=== PATIENT | male | born 1955 | race Asian ===

== ENCOUNTER → 2017-06-17 | Day surgery (SDC) | payer BC ==
[2017-06-17] VITALS (8 sets, daily range): BP systolic 97–132; BP diastolic 69–79; PULSE 53–67; TEMP 36.5–36.8; O2SAT 95–99; Ht 175.3 cm; Wt 80.0 kg
[~2017-06-17] VITALS: Ht 175.3 cm; Wt 80.0 kg
[~2017-06-17] MED LIST: ACETAMINOPHEN 325 MG TAB PO PRN; ASCO500T3 PO; ASPI81TA28 PO; B COCAP3 PO; BACITRACIN OINT 0.9 GM PKT ONE; CEFAZOLIN 2000MG IV PUSH 15 ML IV SCH; FENTANYL CITRATE INJ 50 MCG/1 ML 2 ML VIAL ONE; KETOROLAC TROMETHAMINE 10 MG TAB PO PRN; LIDOCAINE HCL 1% 20 ML VIAL ONE; MAGN400T6 PO; METO50TA16 PO; MIDAZOLAM HCL 5 MG/ML 1 ML VIAL ONE; MULT-1030 PO; MYCO500T4 PO; TACR1CAP PO; VITATAB19 PO
--- NOTE | 2017-06-17 08:24 | History & Physical Bridge Note ---
H&P Re-Evaluation Bridge Note: I have examined the patient, reviewed the History & Physical and in the interval since the performance of the History & Physical I have noted the following changes of clinical significance: No changes noted. I reviewed the indications, procedure, risks and alternatives of device removal versus replacement with him, he understands that with device removal there is some risk of an arrhythmia but he feels that he would prefer to have the device out despite that risk. He has never used the device. We will therefore remove the device. I am going to leave the lead in place, will be capped. There will therefore be some bulk in the pocket, although will be less. He also would like the suture ears on the leads removed as they do raise his skin and I will do that also. Consent obtained for the procedure. I also reviewed the indications, procedure risks and alternatives of sedation with him and he understands and agrees to proceed. Consent obtained.
--- NOTE | 2017-06-17 08:25 | Pre Sedation Assessment ---
Pre Sedation Assessment General Date of Sedation: Jun 17, 2017. Vital Signs Past 12 Hours Date Time Temp Pulse Resp B/P (MAP) Pulse Ox O2 Delivery O2 Flow Rate FiO2 06/17/17 06:37 36.5 58 18 125/74 (91) 98 Room Air Review Cardiovascular: regular rate, rhythm Lungs: lungs clear Pre-Sedation Airway Assessment Smoking Status: Current Every Day Smoker Hx of Sleep Apnea: No Short Thick Neck: No Thyro-mental Distance: > 3 Finger Breadths Oral Cavity: Capped Teeth Mallampati Classification: Class II ASA Classification: Class II NPO Status Date of Last Intake of Fluids: Jun 16, 2017 Time of Last Intake of Fluids: 2099 Date of Last Intake of Solids: Jun 16, 2017 Time of Last Intake of Solids: 2099 Procedure Planning Contraindications for Sedation: None Current Medications Reviewed: Yes Notes The planned sedation has been discussed with the patient. Informed Consent was obtained. I have identified the patient, determined the appropriateness of sedation and have assessed the patient immediately prior to the procedure. All medicine(s) and interventions are by my order.
--- NOTE | 2017-06-17 10:10 | [facility] Operative Report ---
Operative Report Operative Date Jun 17, 2017. Pre-Operative Diagnosis ICD at end of service ICD pocket discomfort Post-Operative Diagnosis Same Procedure(s) Performed Dual-chamber ICD explantation ICD pocket revision Surgeon Dr. Tapia [employer] Officer Surgeon(s) none Estimated Blood Loss 20 cc Findings Lead measurements were good through the device preoperatively, the leads were capped and left in place. The pocket was revised to allow the leads to lay flush with the pectoralis fascia to reduce discomfort. Specimens Old ICD, return to [employer] Anesthesia Local with sedation Complication(s) None Disposition Same day surgery Description of Procedure After obtaining informed consent for the procedure, the patient was brought to the laboratory being NPO after midnight. After identification in the laboratory the patient was prepped and draped in the standard sterile manner for a left- sided device removal. The left prepectoral region was anesthetized with 1% lidocaine local anesthetic and once adequate anesthesia was obtained a 7 cm incision was made through the old implant scar and carried down to the ICD generator. The generator was dissected free of tissue and explanted. A bacitracin-soaked sponge(50,000 units in 50 cc normal saline solution) was placed in the pocket. The ICD was removed from the leads and the leads were capped with lead end caps held in place with 2-0 silk suture. Pacing and sensing characteristics had been evaluated in both the atrial and ventricular leads preoperatively as noted on the implant data sheet. The ICD pocket was revised by rerouting the leads which required careful dissection of the lead course, debulking the site with removal of scar tissue and allowing a smoother lead lie. The bacitracin-soaked sponge was removed from the pocket. The incision was closed with a running double subcutaneous closure of 3-0 V-Lock absorbable suture followed by a running subcuticular skin closure of 4-0 V-Lock absorbable suture. I attest to the content of the Intraoperative Record and any orders documented therein. Any exceptions are noted below.
--- NOTE | 2017-06-17 10:10 | Post Sedation Assessment ---
Post Sedation Assessment General Date of Sedation Jun 17, 2017. Vital Signs: Vital Signs Past 12 Hours Date Time Temp Pulse Resp B/P (MAP) Pulse Ox O2 Delivery O2 Flow Rate FiO2 06/17/17 06:37 36.5 58 18 125/74 (91) 98 Room Air Post Procedure Recovery Score Activity: (2) Moves 4 extremities * Respiration: (2) Deep breath/cough Circulation: (2) +/-20% PreAnes Value Consciousness: (2) Fully Awake Oxygen Saturation: (2) > 92% On Room Air Post Anesthesia Score: 10 Discharge Sedation Level of Care: Fast Track Phase II Post Sedation Plan On clinical assessment, the patient appears to have tolerated the sedation without complications. Patient is recovering as anticipated. Patient will continue to be monitored by nursing and may be discharged when sedation discharge criteria are met per below protocol. Upon Completions of procedure and additional 15 minutes continue every 5 minute vital signs and the P.A.R. score; then discharge to a Phase I or Fast Track to Phase II per the following guidelines: * Discharge Patient to appropriate Phase II area if PAR is 8 or greater or return to pre- procedure baseline. The post - procedure orders will be as directed. * If PAR score is less than 8 or not return to pre-procedure baseline then patient will follow Phase I monitoring till PAR is reached for Phase II. The Phase I may be done in procedure room or may call to secure a Phase I area. * If naloxone or flumazenil are used for reversal, hold in Phase I for an additional 60 -120 minutes before discharge to Phase II. Please call the Sedation Physician to re-evaluate and complete post-note for discharge to Phase II area. Do NOT discharge from procedure sedation or Phase 1 until post- sedation evaluation note is complete by procedure /sedation MD Sedation Discharge Instructions to be given to the patient at discharge to home.
--- NOTE | 2017-06-17 10:24 | Discharge Instructions ---
Discharge Instructions Date of Service Jun 17, 2017. Admission Reason for Admission: ICD at end of service Discharge Discharge Diagnosis / Problem: ICD removal, ICD pocket revision Discharge Goals Goal(s): Decrease discomfort, Increase independence Activity Recommendations Activity Limitations: resume your previous activity . Instructions / Follow-Up Instructions / Follow-Up ACTIVITY RECOMMENDATIONS: * Do not raise affected arm over head for 2 weeks. SPECIAL CARE INSTRUCTIONS: * If bleeding occurs, apply direct pressure to area for 5 minutes. * Call your doctor if you have severe pain, fever, drainage or bleeding at site. * Keep dressing on and dry. SKIN IRRITATION: * You may experience some redness and/or swelling in the area where radiation was administered. If any skin irritation occurs, please contact your family physician. FOLLOW UP VISIT: * Dr. Tapia Wednesday06/18/2017 10:00 AM Current Hospital Diet Patient's current hospital diet: AHA Diet (Heart Healthy) Discharge Diet Recommended Diet: AHA Diet (Heart Healthy), Renal Diet Pending Studies Studies pending at discharge: no Medical Emergencies . Who to Call and When: Medical Emergencies: If at any time you feel your situation is an emergency, please call 911 immediately. . Non-Emergent Contact Non-Emergency issues call your: Primary Care Provider . . "Provider Documentation" section prepared by Arnulfo Tapia. . VTE Core Measure Inpt VTE Proph given/why not?: Treatment not indicated
== END | disposition home or self-care (01) ==
LOC: C.ACU 06:09
PROVIDERS: ATTEND Internal Medicine Cardiovascular Disease
DX: I42.9 Cardiomyopathy, unspecified (principal); I25.10 Atherosclerotic heart disease of native coronary artery without angina pectoris; I12.0 Hypertensive chronic kidney disease with stage 5 chronic kidney disease or end stage renal disease; N18.6 End stage renal disease; F17.200 Nicotine dependence, unspecified, uncomplicated; Z94.0 Kidney transplant status; Z79.899 Other long term (current) drug therapy; Z86.79 Personal history of other diseases of the circulatory system; Z83.3 Family history of diabetes mellitus; Z80.1 Family history of malignant neoplasm of trachea, bronchus and lung; Z80.42 Family history of malignant neoplasm of prostate; Z79.82 Long term (current) use of aspirin

== ENCOUNTER 2022-06-15 21:00 | Observation (INO) ==
[2022-06-15 22:27] LABS: Albumin Globulin Ratio 1.3 (0.9-2); Albumin Level 3.8 gm/dl (3.4-5.0); BUN Creatinine Ratio 16.1 (10-20); Bilirubin,Total 1.5 mg/dl (0.2-1.0); Calcium 9.9 mg/dl (8.5-10.1); Creatinine Clr Calc Pharmacy 62.8 ml/min; Est GFR (African American) 78.9 ml/min; Est GFR (Non-African American) 68.1 ml/min; Globulin 2.9 gm/dl (2.5-4.0); Magnesium 1.8 mg/dl (1.7-2.4); Potassium 4.2 mmol/L (3.5-5.1); Total Protein 6.7 gm/dl (6.0-8.3)
[2022-06-15 22:42] LABS: INR 1.2 (0.9-1.1); Partial Thromboplastin Ratio 0.9; Partial Thromboplastin Time 24.1 Seconds (21.0-31.0); Prothrombin Time 12.8 Seconds (9.0-12.0)
[2022-06-15 22:43] LABS: Hematocrit (blood only) 18.8 % (42.0-52.0); Hemoglobin 6.5 g/dl (14.0-18.0); Mean Corpuscular Hemoglobin 35.5 pg (25.0-34.0); Mean Corpuscular Hgb Conc 34.6 g/dL (32.0-36.0); Mean Corpuscular Volume 102.7 fL (80.0-100.0); Mean Platelet Volume 10.6 fL (9.4-12.4); Nucleated RBC # (auto) 0.02 K/uL (0-0.12); Platelet Count 97 K/uL (130-400); RDW Coefficient of Variation 17.3 % (11.5-14.5); RDW Standard Deviation 61.6 fL (36.4-46.3); Red Blood Count 1.83 M/uL (4.70-6.10); White Blood Count 1.96 K/ul (4.8-10.8)
[2022-06-15] MEDS ORDERED: SODIUM CHLORIDE 0.9% 250 ML IV PRN (23:01)
[2022-06-15 23:08] LABS: ALC (manual) 0.43 K/uL (1.2-3.4); ANC (manual) 1.22 K/uL (1.4-6.5); Basophils # (manual) 0.06 K/uL (0-0.2); Basophils % (manual) 3 %; Lymphocytes # (manual) 0.43 K/uL (1.2-3.4); Lymphocytes % (manual) 22 %; Metamyelocytes # (manual) 0.02 K/uL (0-0); Metamyelocytes % (manual) 1 %; Monocytes # (manual) 0.14 K/uL (0.11-0.59); Monocytes % (manual) 7 %; Myelocytes # (manual) 0.08 K/uL (0-0); Myelocytes % (manual) 4 %; Neutrophils # (manual) 1.22 K/uL (1.40-6.50); Neutrophils % (manual) 62 %; Promyelocytes # (manual) 0.02 K/uL (0-0); Promyelocytes % (manual) 1 %
--- NOTE | 2022-06-16 00:52 | History & Physical Report ---
Date of Service June 16, 2022 Assessment & Plan (1) Pancytopenia: (2) Symptomatic anemia: (3) Neutropenia: (4) Cardiomyopathy: (5) Hypertension: (6) Kidney replaced by transplant: (7) Long-term use of immunosuppressant medication: (8) Paroxysmal atrial fibrillation: (9) Thrombocytopenia: (10) Mitral regurgitation: (11) Petechiae: Plan Symptomatic anemia- Hemoglobin 6.5 on admission Patient received 2 units PRBCs as written from the ED Repeat laboratories in a.m. Patient does not have acute blood loss. Decreased hemoglobin is likely a function of immunosuppressant medication side effects, and or other bone marrow dysfunction Consult hematology/oncology, who aware the patient Status post kidney transplant- Patient has been on mycophenolate and tacrolimus He does not have a local jack prizer We will defer to hematology oncology for any reduction of medications that may be needed Neutropenia- Placed on neutropenic precautions come on Abnormal WBC differential noted with increased numbers of metamyelocytes, myelocytes, promyelocytes and blast cells. It has been determined by [facility] that follow laboratory serially the patient does not need to be transferred Peripheral smear pending Thrombocytopenia- Hold aspirin for now due to potential aggravation Acute kidney injury- Creatinine 1.22 upon admission, with range 0.80-1.00 Will likely improve with transfusion Hypertension- Hold metoprolol tartrate due to relatively low blood pressure History of Present Illness Chief Complaint: The patient is referred to the emergency department due to abnormal blood work, and subjectively has become progressively more short of breath over the past few weeks Primary Care Provider: Mor Palacio MD The patient is a 66-year-old male with a past medical history including pancytopenia, mitral regurgitation, CAD, cardiomyopathy, hypertension, kidney transplant, long-term use of immunosuppressant medication, paroxysmal atrial fibrillation, thrombocytopenia and anemia. After discussion by the ED with [facility] specialties physicians, there was an attempt made for the patient transferred to [facility], however, [facility] felt the patient could be managed at this facility, and therefore the patient will be admitted for further evaluation and treatment. The patient himself was concerned that his immunosuppressive medications that he uses for his kidney transplant, may possibly be causing his anemia, as he has been told that in the past. The patient's primary symptom of concern for him is that of progressively worsening shortness of breath and dyspnea on exertion. Allergies Allergy/AdvReac Type Severity Reaction Status Date / Time No Known Allergies Allergy Unverified 06/16/22 00:23 Home Medications Medication Instructions Recorded Confirmed Type aspirin 81 mg tablet 81 mg PO DAILY 03/05/19 06/16/22 History magnesium oxide 400 mg (241.3 mg 400 mg PO HS 03/05/19 06/16/22 History magnesium) tablet multivitamin 1 tab PO DAILY 03/05/19 06/16/22 History mycophenolate mofetil 250 mg 500 mg PO BID #360 caps 03/05/19 06/16/22 History capsule tacrolimus 1 mg capsule, 1 mg PO BID 03/05/19 06/16/22 History immediate-release vitamin B complex (B Complex 1 1 tab PO DAILY 03/05/19 06/16/22 History tablet) cholecalciferol (vitamin D3) 25 25 mcg PO QAM 07/10/20 06/16/22 History mcg (1,000 unit) capsule metoprolol tartrate 50 mg tablet 50 mg PO BID #180 tabs 01/20/22 06/16/22 Rx diphenhydramine HCl 50 mg capsule 50 mg PO HS 06/11/22 06/16/22 History (Sleep Aid (diphenhydramine)) Vitamin B Stress Complex 1 tab PO HS 06/16/22 06/16/22 History Past Med/Surg History Medical History (Updated 06/16/22 @ 04:29 by Luther Carias MD) Arteriosclerosis of coronary artery Cardiomyopathy Hypertension Long-term use of immunosuppressant medication Paroxysmal atrial fibrillation Thrombocytopenia Surgical History (Updated 06/16/22 @ 01:24 by Mode Collins DO) Kidney replaced by transplant S/P adenoidectomy S/P arteriovenous (AV) fistula creation S/P cardiac pacemaker procedure S/P cholecystectomy S/P kidney transplant S/P knee surgery S/P tonsillectomy Family History Mother Diabetes Father Prostate cancer Lung cancer Denies family history of Ovarian cancer Myocardial infarction Breast cancer Colorectal cancer Stroke Social History Smoking Status: Current some day smoker Tobacco Type: Pipe Age Started Using Tobacco: 9; packs per day: 2; Cigarettes Per Day: 0.5 a day; Second Hand Exposure: No; Hx Alcohol Use: Yes Alcohol Intake Frequency: 2-3 x/Week Hx Substance Use: No Preferred Language: Singaporean Communication Ability: Effective Visual Impairment: No Limitations Hearing Ability: Normal marital status: Single current occupational status: retired Feels Safe at Home: Yes Childhood Exposure to Second-Hand Smoke: No Dental Care, Regularly: Yes Physical Activity Frequency: 3-4 Times per Week Seatbelt Use: always Sunscreen Use: Yes Review of Systems Review of Systems: The patient denies chest pain, palpitations, cough, lower extremity swelling, sore throat, fevers, chills, sweats, nausea, vomiting, diarrhea , constipation, abdominal pain, pelvic pain, blood in urine or stool, dysuria, urinary frequency or urgency, lightheadedness, dizziness, headache, memory loss, loss of consciousness, imbalance, focal weakness, numbness or tingling in arms or legs, generalized arthralgias or myalgias, back or neck pain, or night sweats. The review of systems is otherwise negative other than for that already noted above, and at least 10 systems have been reviewed. Physical Exam Physical Exam: The patient is awake, alert and oriented 3, well developed and well nourished, normocephalic and atraumatic, lying in bed and in no acute distress. HEENT--PERRL, EOMI, mucous membranes and oropharynx mildly dry. Neck--supple. No JVD. No bruits. Thyroid normal, trachea midline, no adenopathy. Heart--normal S1 and S2. No murmurs, rubs or gallops. Lungs--clear bilaterally, no respiratory distress, no accessory muscle use. Abdomen--normal bowel sounds and soft. Nontender. Nondistended, no hernias or masses, no organomegaly. Extremities--no cyanosis or clubbing. No edema. Dermatologic--scattered petechial rash Neurologic--cranial nerves II through XII grossly intact. Rheumatologic--normal range of motion. Psychiatric--normal affect. Results & Data Results & Data ([facility]) Vital Signs (Past 12 Hours) Vital Signs Temp Pulse Pulse Resp BP BP Pulse Ox 06/16/22 00:22 37.2 C 79 20 123/70 99 06/16/22 00:07 82 18 123/73 98 06/15/22 23:50 37.1 C 82 18 111/63 97 06/15/22 22:16 97 06/15/22 22:16 97 06/15/22 22:16 92 H 20 133/72 97 06/15/22 22:09 94 H 06/15/22 21:17 37.3 C 107 H 18 120/65 98 O2 Del Method 06/16/22 00:22 06/16/22 00:07 06/15/22 23:50 06/15/22 22:16 Room Air 06/15/22 22:16 Room Air 06/15/22 22:16 Room Air 06/15/22 22:09 06/15/22 21:17 Room Air Laboratory Results Laboratory Results WBC 1.96 K/ul (4.8-10.8) L 06/15/22 21:40 RBC 1.83 M/uL (4.70-6.10) L 06/15/22 21:40 Hgb 6.5 g/dl (14.0-18.0) L* 06/15/22 21:40 Hct 18.8 % (42.0-52.0) L* 06/15/22 21:40 MCV 102.7 fL (80.0-100.0) H 06/15/22 21:40 MCH 35.5 pg (25.0-34.0) H 06/15/22 21:40 MCHC 34.6 g/dL (32.0-36.0) 06/15/22 21:40 RDW Std Deviation 61.6 fL (36.4-46.3) H 06/15/22 21:40 RDW Coeff of Michelle 17.3 % (11.5-14.5) H 06/15/22 21:40 Plt Count 97 K/uL (130-400) L 06/15/22 21:40 MPV 10.6 fL (9.4-12.4) 06/15/22 21:40 Absolute Nucleated RBC 0.02 K/uL (0-0.12) 06/15/22 21:40 Nucleated RBC % (auto) 1.0 % 06/15/22 21:40 Neutrophils % (Manual) 62 % 06/15/22 21:40 Lymphocytes % (Manual) 22 % 06/15/22 21:40 Monocytes % (Manual) 7 % 06/15/22 21:40 Basophils % (Manual) 3 % 06/15/22 21:40 Metamyelocytes % (Man) 1 % 06/15/22 21:40 Myelocytes % (Man) 4 % 06/15/22 21:40 Promyelocytes % (Man) 1 % 06/15/22 21:40 Neutrophils # (Manual) 1.22 K/uL (1.40-6.50) L 06/15/22 21:40 Total Absolute Neuts 1.22 K/uL (1.4-6.5) L 06/15/22 21:40 Lymphocytes # (Manual) 0.43 K/uL (1.2-3.4) L 06/15/22 21:40 Total Abs Lymphocytes 0.43 K/uL (1.2-3.4) L 06/15/22 21:40 Monocytes # (Manual) 0.14 K/uL (0.11-0.59) 06/15/22 21:40 Basophils # (Manual) 0.06 K/uL (0-0.2) 06/15/22 21:40 Metamyelocytes # (Man) 0.02 K/uL (0-0) H 06/15/22 21:40 Myelocytes # (Manual) 0.08 K/uL (0-0) H 06/15/22 21:40 Promyelocytes # (Man) 0.02 K/uL (0-0) H 06/15/22 21:40 PT 12.8 Seconds (9.0-12.0) H 06/15/22 21:40 INR 1.2 (0.9-1.1) H 06/15/22 21:40 APTT 24.1 Seconds (21.0-31.0) 06/15/22 21:40 PTT Ratio 0.9 06/15/22 21:40 Sodium 132 mmol/L (136-145) L 06/15/22 21:40 Potassium 4.2 mmol/L (3.5-5.1) 06/15/22 21:40 Chloride 100 mmol/L (98-107) 06/15/22 21:40 Carbon Dioxide 20 mmol/L (21-32) L 06/15/22 21:40 Anion Gap 12 (3-11) H 06/15/22 21:40 BUN 18 mg/dl (6-23) 06/15/22 21:40 Creatinine 1.12 mg/dl (0.6-1.4) 06/15/22 21:40 Est Cr Clr Drug Dosing 62.8 ml/min 06/15/22 21:40 Est GFR ( Amer) 78.9 ml/min 06/15/22 21:40 Est GFR (Non-Af Amer) 68.1 ml/min 06/15/22 21:40 BUN/Creatinine Ratio 16.1 (10-20) 06/15/22 21:40 Glucose 96 mg/dl (70-99(Fasting)) 06/15/22 21:40 Calcium 9.9 mg/dl (8.5-10.1) 06/15/22 21:40 Magnesium 1.8 mg/dl (1.7-2.4) 06/15/22 21:40 Total Bilirubin 1.5 mg/dl (0.2-1.0) H 06/15/22 21:40 AST 33 U/L (13-39) 06/15/22 21:40 ALT 11 U/L (7-52) 06/15/22 21:40 Alkaline Phosphatase 77 U/L (34-104) 06/15/22 21:40 Troponin I High Sens 10.9 pg/ml (0-20) 06/16/22 02:50 Total Protein 6.7 gm/dl (6.0-8.3) 06/15/22 21:40 Albumin 3.8 gm/dl (3.4-5.0) 06/15/22 21:40 Globulin 2.9 gm/dl (2.5-4.0) 06/15/22 21:40 Albumin/Globulin Ratio 1.3 (0.9-2) 06/15/22 21:40 SARS-CoV-2, RNA, NAAT NEGATIVE (NEGATIVE) 06/15/22 23:05 Blood Type B Positive 06/15/22 21:48 Antibody Screen NEGATIVE 06/15/22 21:48 Crossmatch See Detail 06/15/22 21:48 Code Status & VTE Plan Code Status Full code VTE Prophylaxis Plan VTE Prophylaxis will be ordered: Yes PG Care Time/CCT Total # of Minutes Spent Total Time Spent with Patient: Total time spent is greater than 50% in coordination of care (as documented) at patient's floor/unit and/or counseling patient: Coding Level of Care Code 71450 INT INP/OBS CARE MIN Diagnoses Pancytopenia D61.818 Symptomatic anemia D64.9 Neutropenia D70.9 Cardiomyopathy I42.9 Hypertension I10 Kidney replaced by transplant Z94.0 Long-term use of immunosuppressant medication Z79.899 Paroxysmal atrial fibrillation I48.0 Thrombocytopenia D69.6 Mitral regurgitation I34.0 Petechiae R23.3
--- NOTE | 2022-06-16 01:24 | Emergency Department Note ---
Impression & Plan Pancytopenia, Long-term use of immunosuppressant medication, Kidney replaced by transplant, Symptomatic anemia, Abnormal ECG, Petechiae ED Provider Note NAME: MARGARITO LACEY AGE: 66 SEX: M : 1955 ARRIVES VIA: Walk-In INFORMANT: Patient ED PROVIDER(S): Mode Collins DO CHIEF COMPLAINT: Abnormal blood work HPI: Patient is a 66-year-old male who presents to the ER for abnormal blood work. Patient has extensive past medical history of mitral regurg, CAD, renal transplant who presents to the ER for low hemoglobin. Patient notes that he is becoming very short of breath with any kind of movement. Denies any headache or change in vision. No chest pain. No belly pain nausea vomiting or diarrhea. No dark stools. He notes he had a rash throughout his whole body which has been present for the past 2 weeks. He is followed up with dermatology and they have done biopsies. His PCP called him tonight and referred him urgently into the ER for admission and blood work. Renal transplant was 13 years ago. No fevers. PAST MEDICAL HISTORY:See Below PAST SURGICAL HISTORY:See Below FAMILY HISTORY:See Below SOCIAL HISTORY:See Below HOME MEDICATIONS:See Below ALLERGIES:See Below VITALS:See Below PHYSICAL EXAMINATION: GENERAL: Sitting up in bed, alert, well appearing, well nourished, no distress, non-toxic EYE EXAM: normal conjunctiva. PERRL and EOM's intact. OROPHARYNX: no exudate, no erythema, lips, buccal mucosa, and tongue normal and mucous membranes are moist NECK: supple, no nuchal rigidity, no adenopathy, non-tender LUNGS: Clear to auscultation. Normal chest wall mechanics HEART: no murmurs, S1 normal and S2 normal ABDOMEN: abdomen soft, non-tender, normo-active bowel sounds, no masses, no rebound or guarding. UPPER EXTREMITIES: upper extremities are grossly normal. SKIN: Rash with petechia and vesicles present throughout the chest back and head LOWER EXTREMITIES: No pitting edema. NEURO EXAM: Normal sensorium, cranial nerves II-XII intact, normal speech, no weakness of arms, no weakness of legs. No drift. Finger to nose intact. Gross sensation intact. MEDICAL DECISION MAKING: Patient is a 66-year-old male who presents to the ER referred by PCP. IV was established blood work is obtained and show. External records were reviewed. Labs show pancytopenia with a white count of 1.9, hemoglobin of 6.5 and platelets of 90. BMP with mild hyponatremia 132. T. bili 1.5. LFTs were unremarkable. COVID was negative. Patient was typed and crossed and screened. Given 2 units of PRBCs. Discussed with hematology and oncology and they recommended transfer. Discussed with [facility] oncology and they recommended admission here and having him evaluated by her blood bank calendar control clerk oncologist as this can be dealt with here for the time being unless something changes drastically. Blasts were 0.03. This was discussed at length with Dr. Jo as well as [facility] oncology Dr. Albarado. Patient was updated bedside. Discussed with Dr. Luther Carias for further evaluation admission. Triage Nursing notes reviewed. Limited review of prior medical records performed Vital Signs: reviewed and remarkable for no significant abnormalities Differential diagnosis: Infection, dehydration, metabolic abnormality, hypo/hyperglycemia, electrolyte disturbance, anemia, hypoxia, cardiac sources, intracerebral event, toxicologic, neurologic, as well as other pathologies. ER treatment provided: See below Diagnostics interpreted by me include EKG and cardiac monitoring as listed below: -Cardiac Monitoring: An order was placed for continuous cardiac monitoring. The monitor shows a rate of 80 with sinus rhythm. -ECG: Sinus tachycardia rate of 106 Normal axis T wave inversion and ST depressions V3 through V6 QTc 470 -Laboratory studies:Interpreted by me as stated above in MDM and shown below. Imaging studies: Xrays: As interpreted by me: Portable AP upright 1 view of the chest per my read shows no focal infiltrate CTs show: none Consultation(s): As described in [facility] Procedures:none Critical Care: I have personally spent 35 minutes of critical care time in the direct management of this patient. This includes bedside care, interpretation of diagnostic studies, and testing, discussion with consultants, patient, and family members, and other required patient management activities. This 35 minutes is in excess of all separately billable procedures. Past Med/Surg History Medical History (Updated 06/16/22 @ 01:24 by Mode Collins DO) Arteriosclerosis of coronary artery Cardiomyopathy Hypertension Long-term use of immunosuppressant medication Paroxysmal atrial fibrillation Thrombocytopenia Surgical History (Updated 06/16/22 @ 01:24 by Mode Collins DO) Kidney replaced by transplant S/P adenoidectomy S/P arteriovenous (AV) fistula creation S/P cardiac pacemaker procedure S/P cholecystectomy S/P kidney transplant S/P knee surgery S/P tonsillectomy Family History Mother Diabetes Father Prostate cancer Lung cancer Denies family history of Ovarian cancer Myocardial infarction Breast cancer Colorectal cancer Stroke Social History Smoking Status: Current some day smoker Tobacco Type: Pipe Age Started Using Tobacco: 9; packs per day: 2; Cigarettes Per Day: 0.5 a day; Second Hand Exposure: No; Hx Alcohol Use: Yes Alcohol Intake Frequency: 2-3 x/Week Hx Substance Use: No Preferred Language: Romansh Communication Ability: Effective Visual Impairment: No Limitations Hearing Ability: Normal marital status: Single current occupational status: retired Feels Safe at Home: Yes Childhood Exposure to Second-Hand Smoke: No Dental Care, Regularly: Yes Physical Activity Frequency: 3-4 Times per Week Seatbelt Use: always Sunscreen Use: Yes Allergies Allergies Allergy/AdvReac Type Severity Reaction Status Date / Time No Known Allergies Allergy Unverified 06/16/22 00:23 Home Meds Home Medications Medication Instructions Recorded Confirmed aspirin 81 mg tablet 81 mg PO DAILY 03/05/19 06/16/22 magnesium oxide 400 mg (241.3 mg 400 mg PO HS 03/05/19 06/16/22 magnesium) tablet multivitamin 1 tab PO DAILY 03/05/19 06/16/22 mycophenolate mofetil 250 mg 500 mg PO BID #360 caps 03/05/19 06/16/22 capsule tacrolimus 1 mg capsule, 1 mg PO BID 03/05/19 06/16/22 immediate-release vitamin B complex (B Complex 1 1 tab PO DAILY 03/05/19 06/16/22 tablet) cholecalciferol (vitamin D3) 25 25 mcg PO QAM 07/10/20 06/16/22 mcg (1,000 unit) capsule diphenhydramine HCl 50 mg capsule 50 mg PO HS 06/11/22 06/16/22 (Sleep Aid (diphenhydramine)) Vitamin B Stress Complex 1 tab PO HS 06/16/22 06/16/22 Previous Rx's Medication Instructions Recorded metoprolol tartrate 50 mg tablet 50 mg PO BID #180 tabs 01/20/22 Results & Data (ED) Vital Signs Vital Signs - 24 hr 06/15/22 21:17 06/15/22 22:09 06/15/22 22:16 Temperature 37.3 C Temperature Source Temporal Artery Scan Pulse Rate 107 H 94 H Pulse Rate [Apical] 92 H Respiratory Rate 18 20 Respiratory Effort / Characteristics Non-Labored Non-Labored Respiratory Depth Normal Normal Respiratory Pattern Regular Blood Pressure 120/65 Blood Pressure [Right Arm] 133/72 Blood Pressure Mean 83 Blood Pressure Mean [Right Arm] 92 Pulse Oximetry 98 97 Oxygen Delivery Method Room Air Room Air Sepsis Recent Fever Within 48 Hours No Sepsis New/Unexplained Change in Mental Status No Sepsis Action Taken by Nursing No Action Required 06/15/22 22:16 06/15/22 22:16 06/15/22 23:50 Temperature 37.1 C Temperature Source Oral Pulse Rate 82 Pulse Rate [Apical] Respiratory Rate 18 Respiratory Effort / Characteristics Respiratory Depth Respiratory Pattern Blood Pressure 111/63 Blood Pressure [Right Arm] Blood Pressure Mean 79 Blood Pressure Mean [Right Arm] Pulse Oximetry 97 97 97 Oxygen Delivery Method Room Air Room Air Sepsis Recent Fever Within 48 Hours Sepsis New/Unexplained Change in Mental Status Sepsis Action Taken by Nursing 06/16/22 00:07 06/16/22 00:22 06/16/22 00:52 Temperature 37.2 C Temperature Source Oral Pulse Rate 82 79 74 Pulse Rate [Apical] Respiratory Rate 18 20 18 Respiratory Effort / Characteristics Respiratory Depth Respiratory Pattern Blood Pressure 123/73 123/70 103/60 Blood Pressure [Right Arm] Blood Pressure Mean 89 87 74 Blood Pressure Mean [Right Arm] Pulse Oximetry 98 99 98 Oxygen Delivery Method Sepsis Recent Fever Within 48 Hours Sepsis New/Unexplained Change in Mental Status Sepsis Action Taken by Nursing Laboratory Data 06/15/22 21:40 06/15/22 21:40 Lab Results 06/15/22 06/15/22 06/15/22 Range/Units 21:40 21:40 21:40 WBC 1.96 L (4.8-10.8) K/ul RBC 1.83 L (4.70-6.10) M/uL Hgb 6.5 L* (14.0-18.0) g/dl Hct 18.8 L* (42.0-52.0) % MCV 102.7 H (80.0-100.0) fL MCH 35.5 H (25.0-34.0) pg MCHC 34.6 (32.0-36.0) g/dL RDW Std Deviation 61.6 H (36.4-46.3) fL RDW Coeff of Michelle 17.3 H (11.5-14.5) % Plt Count 97 L (130-400) K/uL MPV 10.6 (9.4-12.4) fL Absolute Nucleated RBC 0.02 (0-0.12) K/uL Nucleated RBC % (auto) 1.0 % Neutrophils % (Manual) 62 % Lymphocytes % (Manual) 22 % Monocytes % (Manual) 7 % Basophils % (Manual) 3 % Metamyelocytes % (Man) 1 % Myelocytes % (Man) 4 % Promyelocytes % (Man) 1 % Neutrophils # (Manual) 1.22 L (1.40-6.50) K/uL Total Absolute Neuts 1.22 L (1.4-6.5) K/uL Lymphocytes # (Manual) 0.43 L (1.2-3.4) K/uL Total Abs Lymphocytes 0.43 L (1.2-3.4) K/uL Monocytes # (Manual) 0.14 (0.11-0.59) K/uL Basophils # (Manual) 0.06 (0-0.2) K/uL Metamyelocytes # (Man) 0.02 H (0-0) K/uL Myelocytes # (Manual) 0.08 H (0-0) K/uL Promyelocytes # (Man) 0.02 H (0-0) K/uL PT 12.8 H (9.0-12.0) Seconds INR 1.2 H (0.9-1.1) APTT 24.1 (21.0-31.0) Seconds PTT Ratio 0.9 Sodium 132 L (136-145) mmol/L Potassium 4.2 (3.5-5.1) mmol/L Chloride 100 (98-107) mmol/L Carbon Dioxide 20 L (21-32) mmol/L Anion Gap 12 H (3-11) BUN 18 (6-23) mg/dl Creatinine 1.12 (0.6-1.4) mg/dl Est Cr Clr Drug Dosing 62.8 ml/min Est GFR ( Amer) 78.9 ml/min Est GFR (Non-Af Amer) 68.1 ml/min BUN/Creatinine Ratio 16.1 (10-20) Glucose 96 (70-99(Fasting)) mg/dl Calcium 9.9 (8.5-10.1) mg/dl Magnesium 1.8 (1.7-2.4) mg/dl Total Bilirubin 1.5 H (0.2-1.0) mg/dl AST 33 (13-39) U/L ALT 11 (7-52) U/L Alkaline Phosphatase 77 (34-104) U/L Total Protein 6.7 (6.0-8.3) gm/dl Albumin 3.8 (3.4-5.0) gm/dl Globulin 2.9 (2.5-4.0) gm/dl Albumin/Globulin Ratio 1.3 (0.9-2) SARS-CoV-2, RNA, NAAT (NEGATIVE) Blood Type Antibody Screen Crossmatch 06/15/22 06/15/22 Range/Units 21:48 23:05 WBC (4.8-10.8) K/ul RBC (4.70-6.10) M/uL Hgb (14.0-18.0) g/dl Hct (42.0-52.0) % MCV (80.0-100.0) fL MCH (25.0-34.0) pg MCHC (32.0-36.0) g/dL RDW Std Deviation (36.4-46.3) fL RDW Coeff of Michelle (11.5-14.5) % Plt Count (130-400) K/uL MPV (9.4-12.4) fL Absolute Nucleated RBC (0-0.12) K/uL Nucleated RBC % (auto) % Neutrophils % (Manual) % Lymphocytes % (Manual) % Monocytes % (Manual) % Basophils % (Manual) % Metamyelocytes % (Man) % Myelocytes % (Man) % Promyelocytes % (Man) % Neutrophils # (Manual) (1.40-6.50) K/uL Total Absolute Neuts (1.4-6.5) K/uL Lymphocytes # (Manual) (1.2-3.4) K/uL Total Abs Lymphocytes (1.2-3.4) K/uL Monocytes # (Manual) (0.11-0.59) K/uL Basophils # (Manual) (0-0.2) K/uL Metamyelocytes # (Man) (0-0) K/uL Myelocytes # (Manual) (0-0) K/uL Promyelocytes # (Man) (0-0) K/uL PT (9.0-12.0) Seconds INR (0.9-1.1) APTT (21.0-31.0) Seconds PTT Ratio Sodium (136-145) mmol/L Potassium (3.5-5.1) mmol/L Chloride (98-107) mmol/L Carbon Dioxide (21-32) mmol/L Anion Gap (3-11) BUN (6-23) mg/dl Creatinine (0.6-1.4) mg/dl Est Cr Clr Drug Dosing ml/min Est GFR ( Amer) ml/min Est GFR (Non-Af Amer) ml/min BUN/Creatinine Ratio (10-20) Glucose (70-99(Fasting)) mg/dl Calcium (8.5-10.1) mg/dl Magnesium (1.7-2.4) mg/dl Total Bilirubin (0.2-1.0) mg/dl AST (13-39) U/L ALT (7-52) U/L Alkaline Phosphatase (34-104) U/L Total Protein (6.0-8.3) gm/dl Albumin (3.4-5.0) gm/dl Globulin (2.5-4.0) gm/dl Albumin/Globulin Ratio (0.9-2) SARS-CoV-2, RNA, NAAT NEGATIVE (NEGATIVE) Blood Type B Positive Antibody Screen NEGATIVE Crossmatch See Detail Discharge Plan Visit Data Chief Complaint: Referred by Doctor Stated Complaint: REF BY DOC, BLOOD INFUSION ED Provider: Mode Collins Discharge Problem: Pancytopenia, Long-term use of immunosuppressant medication, Kidney replaced by transplant, Symptomatic anemia, Abnormal ECG, Petechiae Forms Stand Alone Forms: My [facility] Prescriptions Prescriptions: No Action tacrolimus 1 mg capsule 1 mg PO BID aspirin 81 mg tablet 81 mg PO DAILY mycophenolate mofetil 250 mg capsule 500 mg PO BID Qty: 360 magnesium oxide 400 mg (241.3 mg magnesium) tablet 400 mg PO HS multivitamin tablet 1 tab PO DAILY vitamin B complex [B Complex 1] tablet 1 tab PO DAILY cholecalciferol (vitamin D3) 25 mcg (1,000 unit) capsule 25 mcg PO QAM metoprolol tartrate 50 mg tablet 50 mg PO BID Qty: 180 3RF diphenhydramine HCl [Sleep Aid (diphenhydramine)] 50 mg capsule 50 mg PO HS Vitamin B Stress Complex 1 tab PO HS Referrals Referrals: Pro,Mor Oliveira MD [Primary Care Provider] -
[2022-06-16] MEDS ORDERED: ONDANSETRON INJ 2 MG/ML 2 ML VIAL IV PRN (01:54)
[2022-06-16] MEDS ORDERED: ACETAMINOPHEN 325 MG TAB PO PRN (01:54)
[2022-06-16] MEDS: TACROLIMUS 1 MG CAP PO SCH ×3 (02:00→21:08)
[2022-06-16] MEDS: MYCOPHENOLATE MOFETIL 250 MG CAP PO SCH ×3 (02:00→21:08)
[2022-06-16 06:44] LABS: Appearance Urine Clear (Clear); Bilirubin Urine Negative (Negative); Blood Urine Negative (Negative); Color Urine Yellow; Glucose Urine UA Negative (Negative); Ketones Urine Negative (Negative); Leukocyte Esterase Urine Negative (Negative); Nitrite Urine Negative (Negative); Protein Urine Negative (Negative); Specific Gravity Urine 1.005 (1.000-1.030); Urobilinogen Urine Negative (Negative); pH Urine 6.5 (4.5-7.5)
--- NOTE | 2022-06-16 08:30 | Oncology Consultation ---
Date of Consultation June 16, 2022 Assessment & Plan (1) Pancytopenia: (2) Kidney replaced by transplant: (3) Long-term use of immunosuppressant medication: Plan Pleasant gentleman with history of renal transplant for which he has remained on chronic immunosuppression with tacrolimus/CellCept. Presented with worsening pancytopenia. Multiple potential etiologies for pancytopenia including viral infection most especially in the setting of molluscum contagiosum like rash. Dr trinidad-induced thrombotic microangiopathy is another possibility especially given elevated LDH and mild unconjugated hyperbilirubinemia. He is also on immunosuppression medications with both tacrolimus and CellCept potentially causing bone marrow suppression although this is atypical given long-term use of these medications. He could also have underlying hematologic malignancy such as MDS/leukemia or lymphoma. Will discuss with renal transplant team at [facility] and if they feel this is less likely due to drug-induced TMA or marrow suppression from tacrolimus/CellCept, will plan for bone marrow biopsy later this week to rule out underlying malignancy. In the meantime, agree with PRBC transfusion with goal of hemoglobin greater than 7.5. Also recommend infectious work-up to rule out underlying infection. Thank you for this consult. Hematology will follow patient upon discharge from hospital. Please feel free to call if you have any other questions History of Present Illness Reason for Consultation: Pancytopenia Attending Physician: Primitivo Hicks History of Present Illness Pleasant 66-year-old gentleman with medical history of kidney transplant on 09/04/2009 for which she has required chronic immunosuppression with CellCept and tacrolimus. Patient was admitted to [facility] for worsening pancytopenia. He had presented to his PCP about a week ago with complaints of 2-week history of worsening generalized rash. At that time, CBC was obtained which revealed new onset pancytopenia with white cell count of 2.09, hemoglobin of 7.8 (decreased from 16.1 in March,), thrombocytopenia with platelet count of of 1 29,000. At that time, and had discussed case with his PCP and recommended work-up including iron studies, vitamin B12 level, folate, LDH, haptoglobin, Prakash test and reticulocyte count. Patient was also referred to dermatology for evaluation of skin lesions. He was scheduled to be evaluated in hematology clinic later this week. However, labs obtained by PCP yesterday revealed worsening anemia with hemoglobin of 6.5. Since patient was symptomatic, ER evaluation was recommended. At the time of seeing patient today, he complained of shortness of breath, fatigue, 20 pounds weight loss, generalized rash and generally feeling unwell. States that his transplant was at [facility] and follows up yearly with them. Most recent tacrolimus level was drawn last week and he indicates that his level was low. Allergies Allergy/AdvReac Type Severity Reaction Status Date / Time No Known Allergies Allergy Unverified 06/16/22 00:23 Home Medications Medication Instructions Recorded Confirmed Type aspirin 81 mg tablet 81 mg PO DAILY 03/05/19 06/16/22 History magnesium oxide 400 mg (241.3 mg 400 mg PO HS 03/05/19 06/16/22 History magnesium) tablet multivitamin 1 tab PO DAILY 03/05/19 06/16/22 History mycophenolate mofetil 250 mg 500 mg PO BID #360 caps 03/05/19 06/16/22 History capsule tacrolimus 1 mg capsule, 1 mg PO BID 03/05/19 06/16/22 History immediate-release vitamin B complex (B Complex 1 1 tab PO DAILY 03/05/19 06/16/22 History tablet) cholecalciferol (vitamin D3) 25 25 mcg PO QAM 07/10/20 06/16/22 History mcg (1,000 unit) capsule metoprolol tartrate 50 mg tablet 50 mg PO BID #180 tabs 01/20/22 06/16/22 Rx diphenhydramine HCl 50 mg capsule 50 mg PO HS 06/11/22 06/16/22 History (Sleep Aid (diphenhydramine)) Vitamin B Stress Complex 1 tab PO HS 06/16/22 06/16/22 History Patient History Medical History (Updated 06/16/22 @ 06:54 by Tracy Fowler MD) Arteriosclerosis of coronary artery Cardiomyopathy Hypertension Long-term use of immunosuppressant medication Pancytopenia Paroxysmal atrial fibrillation Thrombocytopenia Surgical History (Updated 06/16/22 @ 01:24 by Mode Collins DO) Kidney replaced by transplant S/P adenoidectomy S/P arteriovenous (AV) fistula creation S/P cardiac pacemaker procedure S/P cholecystectomy S/P kidney transplant S/P knee surgery S/P tonsillectomy Family History Mother Diabetes Father Prostate cancer Lung cancer Denies family history of Ovarian cancer Myocardial infarction Breast cancer Colorectal cancer Stroke Social History Smoking Status: Current some day smoker Tobacco Type: Pipe Age Started Using Tobacco: 9; packs per day: 2; Cigarettes Per Day: 0.5 a day; Second Hand Exposure: No; Do You Dip or Chew Tobacco: No; Tobacco Cessation Education Requested by Patient: No Hx Alcohol Use: Yes Alcohol Intake Frequency: 2-3 x/Week Hx Substance Use: Yes Last Used Substance: Days (ago) Preferred Language: Jamaican Communication Ability: Effective Visual Impairment: No Limitations Hearing Ability: Normal Co Founder And Chairman Required: No marital status: Single Current Living Situation: Alone current occupational status: retired Other Information That Helps Us Care for You: No Feels Safe at Home: Yes Safety Concerns: Feels Safe At This Time Childhood Exposure to Second-Hand Smoke: No Dental Care, Regularly: Yes Physical Activity Frequency: 3-4 Times per Week Seatbelt Use: always Sunscreen Use: Yes Assistive Devices: None Physical Exam Physical Exam: Generalized molluscum looking rash Constitutional: WD/WN, vitals as above Results & Data ([facility]) Vital Signs (Past 12 Hours) Vital Signs Temp Pulse Pulse Pulse Resp BP BP 06/16/22 08:26 36.7 C 76 18 108/62 06/16/22 06:25 36.8 C 81 18 105/60 06/16/22 02:35 36.9 C 76 18 98/59 L 06/16/22 05:25 36.9 C 77 18 115/64 06/16/22 04:55 36.6 C 76 18 106/61 06/16/22 04:40 36.6 C 77 20 112/65 06/16/22 04:20 36.9 C 79 20 102/56 L 06/16/22 01:52 36.7 C 80 18 94/57 L 06/16/22 01:35 36.7 C 82 16 108/69 06/16/22 01:38 16 06/16/22 01:20 74 15 114/67 06/16/22 00:52 74 18 103/60 06/16/22 00:22 37.2 C 79 20 123/70 06/16/22 00:07 82 18 123/73 06/15/22 23:50 37.1 C 82 18 111/63 06/15/22 22:16 06/15/22 22:16 06/15/22 22:16 92 H 20 133/72 06/15/22 22:09 94 H 06/15/22 21:17 37.3 C 107 H 18 120/65 Pulse Ox O2 Del Method O2 Flow Rate 06/16/22 08:26 97 06/16/22 06:25 98 06/16/22 02:35 94 Room Air 06/16/22 05:25 98 0 06/16/22 04:55 98 0 06/16/22 04:40 99 0 06/16/22 04:20 99 0 06/16/22 01:52 98 0 06/16/22 01:35 100 06/16/22 01:38 98 Room Air 06/16/22 01:20 100 06/16/22 00:52 98 06/16/22 00:22 99 06/16/22 00:07 98 06/15/22 23:50 97 06/15/22 22:16 97 Room Air 06/15/22 22:16 97 Room Air 06/15/22 22:16 97 Room Air 06/15/22 22:09 06/15/22 21:17 98 Room Air
[2022-06-16] MEDS: METOPROLOL TARTRATE 50 MG TAB PO SCH ×2 (09:09→21:12)
[2022-06-16] MEDS: ASPIRIN 81 MG ECTAB PO SCH (09:09)
[2022-06-16] MEDS: CHOLECALCIFEROL 1,000 UNITS 25 MCG TAB PO SCH (09:09)
[2022-06-16] MEDS: MULTIVITAMIN TAB PO SCH (09:09)
[2022-06-16] MEDS: VITAMIN B COMPLEX TAB PO SCH (09:10)
--- NOTE | 2022-06-16 09:52 | XRay Report ---
XR chest 1V portable CLINICAL HISTORY: Sepsis TECHNIQUE: Single frontal radiograph of the chest was obtained. Comparison: None available at the time of this dictation. FINDINGS: Dual lead pacemaker is seen. The cardiomediastinal silhouette is normal. The lungs are clear. No evid ence of pleural effusion or pneumothorax. IMPRESSION: No acute chest disease. ACT 112: Negative or not required by law. Electronically signed by: Tristen Romeo M.D. 06/16/2022 9:51 AM
[2022-06-16 11:30] LABS: Calcium 9.4 mg/dl (8.5-10.1); Potassium 3.9 mmol/L (3.5-5.1)
[2022-06-16 11:35] LABS: Hematocrit (blood only) 21.9 % (42.0-52.0); Hemoglobin 7.4 g/dl (14.0-18.0); Mean Corpuscular Hemoglobin 31.4 pg (25.0-34.0); Mean Corpuscular Hgb Conc 33.8 g/dL (32.0-36.0); Mean Corpuscular Volume 92.8 fL (80.0-100.0); Mean Platelet Volume 10.5 fL (9.4-12.4); Nucleated RBC # (auto) 0.02 K/uL (0-0.12); Nucleated RBC % (auto) 1.1 %; Platelet Count 75 K/uL (130-400); RDW Coefficient of Variation 22.5 % (11.5-14.5); RDW Standard Deviation 72.8 fL (36.4-46.3); Red Blood Count 2.36 M/uL (4.70-6.10); White Blood Count 1.83 K/ul (4.8-10.8)
[2022-06-16 11:38] LABS: Basophils # (auto) 0.02 K/uL (0-0.2); Basophils % (auto) 1.1 %; Eosinophils # (auto) 0.02 K/uL (0-0.50); Eosinophils % (auto) 1.1 %; Immature Granulocytes # (auto) 0.08 K/uL (0.01-0.20); Immature Granulocytes % (auto) 4.4 %; Lymphocytes % (auto) 21.9 %; Monocytes # (auto) 0.37 K/uL (0.11-0.59); Monocytes % (auto) 20.2 %; Neutrophils # (auto) 0.94 K/uL (1.40-6.50); Neutrophils % (auto) 51.3 %
[2022-06-16 11:50] LABS: Est GFR (African American) 105.7 ml/min; Est GFR (Non-African American) 91.2 ml/min
--- NOTE | 2022-06-16 17:37 | XCELERA ---
[id number]
[2022-06-16] MEDS ORDERED: MAGNESIUM OXIDE 400 MG TAB PO SCH (21:00)
[2022-06-16] MEDS ORDERED: diphenhydrAMINE Capsule 25 MG CAP PO SCH (21:00)
[2022-06-16] MEDS ORDERED: [UNRECOGNIZED DRUG - OTHER] PO SCH (21:00)
--- NOTE | 2022-06-17 04:45 | Electrocardiogram Report ---
Test Reason : Blood Pressure : / mmHG Vent. Rate : 106 BPM Atrial Rate : 106 BPM P-R Int : 144 ms QRS Dur : 078 ms QT Int : 354 ms P-R-T Axes : 070 -01 023 degrees QTc Int : 470 ms Sinus tachycardia Low voltage QRS Abnormal ECG No previous ECGs available Confirmed by Steven Horn ([id number]) on 06/17/2022 4:45:34 AM Referred By: Mor Palacio Confirmed By:Steven Horn
--- NOTE | 2022-06-17 05:03 | Electrocardiogram Report ---
Test Reason : Blood Pressure : / mmHG Vent. Rate : 081 BPM Atrial Rate : 081 BPM P-R Int : 156 ms QRS Dur : 090 ms QT Int : 398 ms P-R-T Axes : 011 -21 -24 degrees QTc Int : 462 ms Normal sinus rhythm T wave abnormality, consider anterior ischemia Abnormal ECG When compared with ECG of 15-JUN-2022 21:48, No significant change Confirmed by Steven Horn ([id number]) on 06/17/2022 5:03:15 AM Referred By: Mor Palacio Confirmed By:Steven Horn
[2022-06-17 06:59] LABS: Hematocrit (blood only) 23.7 % (42.0-52.0); Hemoglobin 8.1 g/dl (14.0-18.0); Mean Corpuscular Hemoglobin 31.4 pg (25.0-34.0); Mean Corpuscular Hgb Conc 34.2 g/dL (32.0-36.0); Mean Corpuscular Volume 91.9 fL (80.0-100.0); Mean Platelet Volume 10.4 fL (9.4-12.4); Platelet Count 71 K/uL (130-400); RDW Coefficient of Variation 23.7 % (11.5-14.5); RDW Standard Deviation 76.6 fL (36.4-46.3); Red Blood Count 2.58 M/uL (4.70-6.10); White Blood Count 2.16 K/ul (4.8-10.8)
[2022-06-17 08:31] LABS: ALC (manual) 0.67 K/uL (1.2-3.4); ANC (manual) 1.21 K/uL (1.4-6.5); Blast # (manual) 0.02 K/uL (0-0); Blast Cells % (manual) 1 %; Eosinophils # (manual) 0.04 K/uL (0-0.50); Eosinophils % (manual) 2 %; Lymphocytes # (manual) 0.67 K/uL (1.2-3.4); Lymphocytes % (manual) 31 %; Monocytes # (manual) 0.13 K/uL (0.11-0.59); Monocytes % (manual) 6 %; Myelocytes # (manual) 0.09 K/uL (0-0); Myelocytes % (manual) 4 %; Neutrophils # (manual) 1.21 K/uL (1.40-6.50); Neutrophils % (manual) 56 %; RBC Morphology Unremarkable
--- NOTE | 2022-06-17 08:52 | Hospitalist Progress Note ---
Date of Service June 16, 2022 Assessment & Plan (1) Pancytopenia: (2) Neutropenia: (3) Symptomatic anemia: (4) Elevated bilirubin: (5) Rash: (6) Arteriosclerosis of coronary artery: (7) Cardiomyopathy: (8) Paroxysmal atrial fibrillation: (9) Long-term use of immunosuppressant medication: (10) Kidney replaced by transplant: Plan 1. s/p 2 units PRBCs with improving H/H 2. appreciate heme/onc consult - Dr Linda spoke with his transplant team - they advised CMV, parvovirus, etc 3. outpatient bone marrow bx planned for THIS WEDNESDAY for pancytopenia; of note - TSH/b12/folate wnl 4. neutropenic precautions 5. rash - molluscum contagiosum due to immunosuppressed status?? derm biopsies pending; f/u derm after d/c 6. await echo - obtained due to h/o cardiomyopathy and abnl EKG (T wave changes) along with recent dyspnea 7. cbc in am 8. renal function stable in setting of chronic renal transplant status observe 1 more night Admission and Anticipated Discharge Date Admission Date: June 16, 2022 Subjective pt lying in bed watching TV seems depressed and irritable wants to go home eating fair c/o rash on scalp, chest occasionally itchy did have bx by derm of these lesions (last Wednesday) but no results yet does not follow with cardiology any longer ICD battery has and never had it explanted or battery exchanged continues to follow with his nephrology transplant team [facility] [place] Review of Systems Review of Systems: gen - fatigue cv - no chest pain pulm - recent KURTZ GI - no abd pain Physical Exam Physical Exam: gen - flat affect, irritable, nad mouth - MMM skin - copious pearly papules - some umbilicated - on chest wall, abd wall, scalp; some are purple in color, others red neck - no JVD heart - RRR, s1 s2, 1/6 LISA LSB lungs - CTA b/l except faint dry rales bases abd - soft NT ND BS+; renal transplant RLQ with scar ext - no edema, pulses 2+ b/l Results & Data Results & Data ([facility]) Vital Signs (Past 12 Hours) Vital Signs Temp Pulse Resp BP Pulse Ox O2 Del Method 06/16/22 21:07 36.7 C 79 16 105/60 97 Room Air Laboratory Results Laboratory Results - last 24 hr 06/16/22 06/16/22 06/16/22 09:22 10:37 10:37 WBC 1.83 L RBC 2.36 L Hgb 7.4 L Hct 21.9 L MCV 92.8 D MCH 31.4 MCHC 33.8 RDW Std Deviation 72.8 H RDW Coeff of Michelle 22.5 H Plt Count 75 L MPV 10.5 Immature Gran % (Auto) 4.4 Neut % (Auto) 51.3 Lymph % (Auto) 21.9 Humphreys % (Auto) 20.2 Eos % (Auto) 1.1 Baso % (Auto) 1.1 Neut # (Auto) 0.94 L* Lymph # (Auto) 0.40 L Humphreys # (Auto) 0.37 Eos # (Auto) 0.02 Baso # (Auto) 0.02 Immature Gran # (Auto) 0.08 Absolute Nucleated RBC 0.02 Nucleated RBC % (auto) 1.1 Neutrophils % (Manual) Lymphocytes % (Manual) Monocytes % (Manual) Eosinophils % (Manual) Myelocytes % (Man) Blast Cells % (Manual) Neutrophils # (Manual) Total Absolute Neuts Lymphocytes # (Manual) Total Abs Lymphocytes Monocytes # (Manual) Eosinophils # (Manual) Myelocytes # (Manual) Blast Cells # (Man) RBC Morphology Sodium 135 L Potassium 3.9 Chloride 103 Carbon Dioxide 24 Anion Gap 8 BUN 16 Creatinine 0.84 Est Cr Clr Drug Dosing 82.0 Est GFR ( Amer) 105.7 Est GFR (Non-Af Amer) 91.2 BUN/Creatinine Ratio 19.0 Glucose 111 H Calcium 9.4 TSH CMV Specimen Source Pending CMV Qnt PCR IU/mL Pending CMV Qnt PCR log IU/mL Pending EBV Source Pending EBV DNA, Quant Pending EBV DNA (PCR) Pending Parvovirus Source Pending Parvovirus B19 DNA PCR Pending PG Care Time/CCT Total # of Minutes Spent Total Time Spent with Patient: Total time spent is greater than 50% in coordination of care (as documented) at patient's floor/unit and/or counseling patient: Coding Level of Care Code 92911 SUB INP/OBS CARE 2/35MIN Diagnoses Pancytopenia D61.818 Neutropenia D70.9 Symptomatic anemia D64.9 Elevated bilirubin R17 Rash R21 Arteriosclerosis of coronary artery I25.10 Cardiomyopathy I42.9 Paroxysmal atrial fibrillation I48.0 Long-term use of immunosuppressant medication Z79.899 Kidney replaced by transplant Z94.0
[2022-06-17] MEDS: ASPIRIN 81 MG ECTAB PO SCH (09:02)
[2022-06-17] MEDS: TACROLIMUS 1 MG CAP PO SCH (09:02)
[2022-06-17] MEDS: MYCOPHENOLATE MOFETIL 250 MG CAP PO SCH (09:02)
[2022-06-17] MEDS: CHOLECALCIFEROL 1,000 UNITS 25 MCG TAB PO SCH (09:02)
[2022-06-17] MEDS: METOPROLOL TARTRATE 50 MG TAB PO SCH (09:02)
[2022-06-17] MEDS: MULTIVITAMIN TAB PO SCH (09:02)
[2022-06-17] MEDS: VITAMIN B COMPLEX TAB PO SCH (09:02)
--- NOTE | 2022-06-17 12:31 | Discharge Summary ---
Date of Service date of admission - June 16, 2022 date of discharge - June 17, 2022 Admission HPI Per Admitting Provider The patient is a 66-year-old male with a past medical history including pancytopenia, mitral regurgitation, CAD, cardiomyopathy, hypertension, kidney transplant, long-term use of immunosuppressant medication, paroxysmal atrial fibrillation, thrombocytopenia and anemia. After discussion by the ED with [facility] specialties physicians, there was an attempt made for the patient transferred to , however, felt the patient could be managed at this facility, and therefore the patient will be admitted for further evaluation and treatment. The patient himself was concerned that his immunosuppressive medications that he uses for his kidney transplant, may possibly be causing his anemia, as he has been told that in the past. The patient's primary symptom of concern for him is that of progressively worsening shortness of breath and dyspnea on exertion. Principal Diagnosis 1. pancytopenia 2. anemia - transfusion of 2 units of blood; discharge hemoglobin level 8.1 3. shortness of breath - likely due to anemia 4. diffuse rash - biopsy pending 5. kidney transplant status 6. neutropenia 7. history of cardiomyopathy - resolved Discharge Exam gen - flat affect, NAD mouth - MMM skin - copious pearly papules - some umbilicated - on chest wall, abd wall, scalp; some are purple in color, others red neck - no JVD heart - RRR, s1 s2, 1/6 LISA LSB lungs - CTA b/l except faint dry rales bases abd - soft NT ND BS+; renal transplant RLQ with scar ext - no edema, pulses 2+ b/l Discharge Data Allergies Allergy/AdvReac Type Severity Reaction Status Date / Time No Known Allergies Allergy Verified 06/24/22 13:36 Consultations Oncology - Nikki Linda MD Procedures Performed 1. 2 units PRBCs 2. Echocardiogram - Hospital Course (1) Pancytopenia: The patient was admitted due to symptomatic anemia in the setting of pancytopenia. Presenting hemoglobin was 6.5. He received 2 units PRBCs. Discharge hemoglobin was 8.1. He was seen in consult by Dr Nikki Linda, hematology/oncology. She spoke with Keisha's kidney transplant team who advised viral DNA studies. Thus, CMV, EBV, and parvovirus studies were dispatched. Dr Linda is planning a bone marrow biopsy 48 hours post-discharge in the cancer center. At this time the differential for his pancytopenia is broad including tacrolimus induced toxicity, lymphoma or leukemia, etc. Of note - TSH/B12/folate levels were all wnl. WBC count ranged 1.8 to 2.1 while here with platelets ranging 70s to 90s. He was asked to HOLD his aspirin upon discharge home. (2) Neutropenia: No fever or source of infection while here. ANC was in the 900s during his stay. (3) Symptomatic anemia: s/p 2 units PRBCs as above in #1 (4) Elevated bilirubin: Total bili was mid 1's. Exact cause uncertain. Low-grade hemolysis? Other? Follow-up as outpatient. (5) Rash: Molluscum contagiosum? Other? Patient recently underwent skin biopsies in the [facility] clinic. Those biopsy results are still pending. (6) Arteriosclerosis of coronary artery: EKG with ST changes but no obvious ischemic symptoms while here. Echocardiogram as below. (7) Cardiomyopathy: Due to prior h/o cardiomyopathy a complete echocardiogram was obtained during the stay showing preserved EF. (8) Paroxysmal atrial fibrillation: No runs of a.fib while hospitalized. (9) Long-term use of immunosuppressant medication: Mycophenolate 500mg BID + tacrolimus 1mg BID. For kidney transplant status. (10) Kidney replaced by transplant: Creatinine ranged 0.8 to 1.1 while hospitalized. Original transplant date was 08/2009. Total Time Total Time Spent Total Time Spent (In Minutes): 40 Discharge Plan Discharge Items Patient Disposition: Home - Self-Care Reason For Visit: PANCYTOPENIA, NEUTROPENIA Discharge Diagnosis: 1. pancytopenia (3 types of cells - white cells, red cells, and platelets are all low) 2. anemia - transfusion of 2 units of blood; discharge hemoglobin level 8.1 3. shortness of breath - likely due to anemia 4. diffuse rash - biopsy pending - follow-up with dermatology for this 5. kidney transplant status 6. neutropenia (low white blood cells) 7. history of cardiomyopathy - echocardiogram this admission with normal heart function; cardiomyopathy has resolved Activity: As commented below Activity Comment: light activities only for now Sexual Activity: Wait until after follow-up appointment Exercise/Sports: Wait until after follow-up appointment Non-emergency contact: Primary Care Provider and Oncologist Call non-emergency contact if: you have any medication questions and you have a fever Follow-up/Referrals: Arnulfo Tapia MD [Physician] - (at some point you should re-establish care with cardiology due to past history of cardiomyopathy, abnormal EKG, etc. You have seen Dr Tapia in the past at [facility]. ) Mor Palacio MD [Primary Care Provider] - 06/24/22 10:00 am Eduardo Gustafson MD [Physician] - 06/23/22 (biopsy results; removal of sutures) Nikki Linda MD [Physician] - 06/19/22 7:30 am (bone marrow biopsy due to pancytopenia; [facility] is around the back of the hospital) Diet: Regular Addtl Attending Provider Instructions: Mr Valdes, You were hospitalized due to pancytopenia. This is when all 3 types of blood cells - white cells, red cells, and platelets are low. The exact cause of this at this time is uncertain. There are numerous causes of pancytopenia - nutritional deficiencies (none foun d), viruses, bone marrow disorders, etc. You received 2 units of blood while here as your severe anemia was causing fatigue and shortness of breath. Your hemoglobin was 6.5 at time of admission, improving to 8.1 after the 2 units of blood. Your hemoglobin in March [address] Nikki Linda from [facility] saw you in consult. She is planning to perform a bone marrow biopsy THIS WEDNESDAY, 06/19, at 0730am. This will be at [facility]. The biopsy will hopefully shed some light on why you have developed this pancytopenia. Dr Linda has been in touch with your kidney providers at [facility] regarding this newly discovered blood problem. Due to your past history of heart problems (cardiomyopathy, etc) we performed an echocardiogram and this showed normal heart function. However, since it has been several years since you last saw cardiology, I would recommend that you re-establish care with [facility] in the near- future. It does not appear at this time that the primary cause of the shortness of breath is from a heart-related issue; it is likely the severe anemia causing the breathing difficulty. Recommendations - 1. OK to take [id number] tylenol as needed for aches or pains. 2. Please HOLD your aspirin at this time since your platelet count continues to drop over time. 3. DO NOT TAKE any [id number] motrin, ibuprofen, alleve, naprosyn, etc. 4. Keep appointments with Dr Gustafson from dermatology and Dr Linda as discussed. 5. Since your white blood cell count is low and you are very susceptible to infection please - * wear a mask any time you leave your home * have visitors to your home wear a mask faithfully * do not allow people to your home that are sick even if they have a simple cold or cough * frequent handwashing with soap and water or use of Purell Hand Fleet Coordinator Return to [facility] if - * you have fever over 100 degrees * you have worsening shortness of breath * you have chest pains * you have dizziness or lightheadedness or feel like you could pass out * any other concerns It was our pleasure to care for you! -Dr Hicks Pending Studies at Discharge: Yes Studies:: Parvovirus, CMV virus, and EBV virus studies Stand-Alone Forms: [facility], Smoking Cessation Medications and DC Order Prescriptions: Continued tacrolimus 1 mg capsule 1 mg PO BID mycophenolate mofetil 250 mg capsule 500 mg PO BID Qty: 360 magnesium oxide 400 mg (241.3 mg magnesium) tablet 400 mg PO HS multivitamin tablet 1 tab PO DAILY vitamin B complex [B Complex 1] tablet 1 tab PO DAILY cholecalciferol (vitamin D3) 25 mcg (1,000 unit) capsule 25 mcg PO QAM Vitamin B Stress Complex 1 tab PO HS Changed diphenhydramine HCl [Sleep Aid (diphenhydramine)] 50 mg capsule 25 - 50 mg PO HS Qty: 1 0RF Rx Instructions: for sleep; [id number]-zljsohn benadryl. Discontinued aspirin 81 mg tablet 81 mg PO DAILY No Action metoprolol tartrate 50 mg tablet 25 mg PO BID Qty: 90 1RF Discharge Orders: Discharge Order (Routine); Ordered 06/17/22 Ordered By: Primitivo Hicks Admission Data Admit Date/Time: 06/16/22 00:52 Attending Provider: Priimtivo Hicks Admit Provider: Luther Carias Primary Care Provider: Mor Palacio Other Providers: Nikki Linda Other Interventions: Discharge Summary Assessment (RN) Last Done: 06/17/22 13:22 Coding Level of Care Code HOSP INP/OBS DISCH >30 MIN Diagnoses Pancytopenia D61.818 Neutropenia D70.9 Symptomatic anemia D64.9 Elevated bilirubin R17 Rash R21 Arteriosclerosis of coronary artery I25.10 Cardiomyopathy I42.9 Paroxysmal atrial fibrillation I48.0 Long-term use of immunosuppressant medication Z79.899 Kidney replaced by transplant Z94.0
[2022-06-18 20:01] LABS: CMV DNA Qnt Real Time PCR Not Detected; CMV DNA Quant PCR Not Detected log IU/mL; EBV DNA Quant PCR Not Detected copies/mL; EBV DNA Quant Source Whole Blood; Parvovirus B19 Quant Source BLOOD
== END 2022-06-17 13:43 | disposition home or self-care (01) ==
LOC: ED 21:00 → 3E 06-16 00:52 → INTOOBSV 06-16 00:52 → SUATTDRO 06-16 00:52 → 3E 06-16 01:38

== ENCOUNTER 2022-07-02 13:37 | Inpatient (IN) ==
[2022-07-02] MEDS ORDERED: ACETAMINOPHEN 325 MG TAB PO PRN (14:01)
--- NOTE | 2022-07-02 14:06 | History & Physical Report ---
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 Direct admitted for PICC placement and initiation of chemotherapy given progression of illness Moderate to high risk for tumor lysis Allopurinol pending Renal function is at baseline, although patient is a renal transplant patient Last EF with 60 to 65%, no heart failure CBC, CMP, uric acid, phosphorus to be trended at initiation of chemo. AM reference levels ordered 1 unit RBC ordered for hemoglobin of 7.0. Threshold moving forward 7.5, transfuse platelets for less than 15,000. Platelet transfusion not indicated at time of admission Anemia In the setting of T-cell lymphoma Transfusion threshold 7.5 1 unit ordered for transfusion Hypertension Continue metoprolol 25 mg p.o. twice daily History of renal transplant Transplanted 08/2009, [facility] [address] 06/04 focal glomerular Sclerosis Follows with: Dr. Burton, [facility]. Office phone [phone]. Goal tacrolimus levels 4-6ng/mL Last creatinine 0.93, GFR estimated 85 Tacrolimus 1 mg p.o. twice daily continued, mycophenolate 500 mg twice daily continued. Transplant team is pending final pathology results before adjusting. Tacrolimus levels pending Cardiomyopathy History, repeat echo normal as below Echo 07/01/2022: LV SF normal, no regional wall motion abnormalities, EF 60-65%, no change compared to 06/2022 DVT prophylaxis: SCDs, defer pharmacal prophylaxis in the setting of symptomatic anemia and thrombocytopenia Diet: Regular Disposition: PCU CODE STATUS: Full code (2) Anemia: (3) Rash: (4) Pancytopenia: (5) Hypertension: (6) Kidney replaced by transplant: (7) Long-term use of immunosuppressant medication: History of Present Illness Primary Care Provider: Mor Palacio MD Jose is a 66-year-old male with a past medical history of cardiomyopathy, renal transplant on tacrolimus, hypertension, paroxysmal A-fib not on anticoagulation due to pancytopenia, and CD30 positive lymphoma pending final pathology results who presented for follow-up to hematology oncology. Due to progression of symptoms patient was not felt to be able to wait for outpatient treatment of his malignancy, and is moderate to high risk for TLS and has been referred for hospital admission for initiation of chemotherapy and monitoring Jose is seen at the bedside following direct admission to the hospital. Initial labs with hemoglobin 7.0, WBC 3.17, PLT 100, lymphocytes 0.27, neutrophi l 2.47. Type and cross ordered Patient reports that he initially developed a rash in the end of May/meaning June which rapidly spread from his neck, down his trunk, to his back, and proximal lower legs. Was admitted in the hospital for symptomatic anemia requiring transfusion. Subsequent evaluation and biopsy showed CD30 positive lymphoproliferative disorder. Given patient's rapidly progressive symptoms has been recommended for direct admission and initiation of chemotherapy. Patient reports that he has had weight loss, some night sweats, fatigue, and chronic shortness of breath without difficulty breathing. At time of presentation patient reports that he has no chest pain, chest pressure, lightheadedness, dizziness, cough, , difficulty breathing, abdominal pain, nausea, vomiting, or diarrhea. He is hungry and has not eaten today. He is here to get his treatment started, and has several questions regarding the duration/number cycles of treatment that he will require and will discuss these with oncology. Is aware that a Mediport was not able to be placed due to his s kin involvement, risk/benefits of PICC placement was reviewed with patient at bedside and consent was signed. He does not have any other questions at time of admission. He does continue to take CellCept and tacrolimus. Tac level ordered. Did take morning medicines. Allergies Allergy/AdvReac Type Severity Reaction Status Date / Time No Known Allergies Allergy Verified 06/30/22 12:17 Home Medications Medication Instructions Recorded Confirmed Type magnesium oxide 400 mg (241.3 mg 400 mg PO HS 03/05/19 06/30/22 History magnesium) tablet multivitamin 1 tab PO QAM 03/05/19 06/30/22 History mycophenolate mofetil 250 mg 500 mg PO BID #360 caps 03/05/19 06/30/22 History capsule tacrolimus 1 mg capsule, 1 mg PO BID 03/05/19 06/30/22 History immediate-release vitamin B complex (B Complex 1 1 tab PO QAM 03/05/19 06/30/22 History tablet) cholecalciferol (vitamin D3) 25 25 mcg PO QAM 07/10/20 06/30/22 History mcg (1,000 unit) capsule Vitamin B Stress Complex 1 tab PO HS 06/16/22 06/30/22 History diphenhydramine HCl 50 mg capsule 25 - 50 mg PO HS #1 cap 06/17/22 06/30/22 Rx (Sleep Aid (diphenhydramine)) metoprolol tartrate 50 mg tablet 25 mg PO BID #90 tabs 06/25/22 06/30/22 Rx prednisone 20 mg tablet 20 mg PO TID 06/30/22 06/30/22 History Past Med/Surg History Medical History Arteriosclerosis of coronary artery Cardiomyopathy History of anesthesia problem "woken up during past procedures, because anesthesia didn't have my weight correct." History of cardioversion x3 06/2009, [facility]; no longer follows cardio since pacemaker removed Hypertension Long-term use of immunosuppressant medication s/p renal transplant Pancytopenia Paroxysmal atrial fibrillation dx, following dialysis in 2009 Thrombocytopenia hx Surgical History History of tonsillectomy and adenoidectomy Hx of colonoscopy Kidney replaced by transplant 08/2009, [facility];dr arthur, [place] S/P arteriovenous (AV) fistula creation lt arm restriction S/P cardiac pacemaker procedure placed 07/02/09 at [facility] pacer; pacemaker removed, leads remain intact S/P cholecystectomy Family History Mother Diabetes Father Prostate cancer Lung cancer Denies family history of Ovarian cancer Myocardial infarction Breast cancer Colorectal cancer Stroke Social History Smoking Status: Current every day smoker Tobacco Type: Pipe Age Started Using Tobacco: 9; packs per day: 2; Cigarettes Per Day: smokes daily; Second Hand Exposure: No; Hx Alcohol Use: Yes Alcohol type: beer Alcohol Intake Frequency: 2-3 x/Week Hx Substance Use: No Preferred Language: Thai Communication Ability: Effective Visual Impairment: No Limitations Hearing Ability: Normal 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 NAD. Cooperative. HEENT: Atraumatic, normocephalic.Diffuse rash of the neck bilaterally, Scalp,back, chest, proximal thighs. See photos below Pulm: CTAB A&P. -wheezes, -rales, -rhonchi. Symmetrical chest rise. No increased work of breathing. No respiratory distress. Cardiac: RRR, -mrg. Radial pulses intact and symmetrical. Abdominal: Nontender, nondistended, soft. BS present. Code Status & VTE Plan VTE Prophylaxis Plan VTE Prophylaxis will be ordered: Yes PG Care Time/CCT Total # of Minutes Spent Total Time Spent with Patient: Total time spent is greater than 50% in coordination of care (as documented) at patient's floor/unit and/or counseling patient: Coding Level of Care Code 53265 INT INP/OBS CARE 3/75MIN Diagnoses T-cell lymphoma C85.90 Anemia D64.9 Rash R21 Pancytopenia D61.818 Hypertension I10 Kidney replaced by transplant Z94.0 Long-term use of immunosuppressant medication Z79.899
--- NOTE | 2022-07-02 14:15 | Oncology Consultation ---
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 Skin biopsy revealed CD30 positive lymphoproliferative disorder. 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 Given complexity of patient's case with history of renal transplant, worsening skin lesions, concern for tumor lysis syndrome strongly recommended inpatient hospitalization for cycle 1 of chemotherapy. 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 Unfortunately, brentuximab is not available to be administered while inpatient. We will therefore plan to treat with cyclophosphamide, doxorubicin and prednisone while inpatient. Will arrange for treatment with brentuximab upon discharge from hospital. -He recently had a 2D echocardiogram which revealed normal ejection fraction with EF of 60 to 65%. Was also evaluated today by Dr. Rush for Mediport placement who indicated that Mediport placement would not be possible at this time given significant skin lesions on anterior chest wall. Will therefore plan to administer chemotherapy via PICC line. Discussed side effects of treatment with patient would include but not limited to nausea, vomiting, diarrhea, constipation, increased risk of infection/febrile neutropenia, nephrotoxicity, cardiotoxicity, infusion reaction, risk of bleeding. Following a discussion, he indicated he would like to go ahead with planned treatment. -Needs urgent labs including CBC, CMP, uric acid and phosphorus -Transfuse with PRBC for hemoglobin less than 7.5, platelet count less than 15,000 -PET/CT as scheduled on 07/08/2022 Thank you for this consult. Hematology will continue following while in the hospital. Please feel free to call if you have any further questions History of Present Illness Reason for Consultation: T-cell lymphoma Attending Physician: Dwight Rivera MD History of Present Illness Mr. Valdes is a pleasant 66-year-old gentleman with medical history of kidney transplant on 09/04/2009 for which he has required chronic immunosuppression with CellCept and tacrolimus. He was recently diagnosed with CD30 positive lymphoproliferative disorder. Patient is being directly admitted for inpatient chemotherapy He had presented to his PCP On 06/11/2022 with complaints of 2-week history of worsening generalized rash. At that time, CBC was obtained which revealed new onset pancytopenia with white cell count of 2.09, hemoglobin of 7.8 (decreased from 16.1 in March,), thrombocytopenia with platelet count of of 1 29,000. Patient was referred to dermatology for evaluation of skin lesions. Biopsy of skin lesion obtained by dermatology revealed CD30 positive lymphoproliferative disorder. He was admitted to [facility] on 06/16/2022 with symptomatic anemia for which he required PRBC transfusion prior to discharge. 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 He was started on prednisone 60 mg p.o. daily on 06/23/2022 due to worsening lesions. CT CAP on 06/26/2022 revealed 5 mm nodule in the left lower lobe as well as enlarged left external iliac chain, bilateral inguinal lymph nodes and mild splenomegaly. At the time of seeing patient today, skin lesions seem worse.Endorses more than 20 pounds weight loss, fatigue and shortness of breath. He also states that he has noticed decrease in urination although he is hydrating. Remains on prednisone 60 mg p.o. daily. He is scheduled for PET/CT on 07/08/2022 Allergies Allergy/AdvReac Type Severity Reaction Status Date / Time No Known Allergies Allergy Verified 06/30/22 12:17 Home Medications Medication Instructions Recorded Confirmed Type magnesium oxide 400 mg (241.3 mg 400 mg PO HS 03/05/19 06/30/22 History magnesium) tablet multivitamin 1 tab PO QAM 03/05/19 06/30/22 History mycophenolate mofetil 250 mg 500 mg PO BID #360 caps 03/05/19 06/30/22 History capsule tacrolimus 1 mg capsule, 1 mg PO BID 03/05/19 06/30/22 History immediate-release vitamin B complex (B Complex 1 1 tab PO QAM 03/05/19 06/30/22 History tablet) cholecalciferol (vitamin D3) 25 25 mcg PO QAM 07/10/20 06/30/22 History mcg (1,000 unit) capsule Vitamin B Stress Complex 1 tab PO HS 06/16/22 06/30/22 History diphenhydramine HCl 50 mg capsule 25 - 50 mg PO HS #1 cap 06/17/22 06/30/22 Rx (Sleep Aid (diphenhydramine)) metoprolol tartrate 50 mg tablet 25 mg PO BID #90 tabs 06/25/22 06/30/22 Rx prednisone 20 mg tablet 20 mg PO TID 06/30/22 06/30/22 History Patient History Medical History (Updated 07/02/22 @ 14:19 by Nikki Linda MD) Arteriosclerosis of coronary artery Cardiomyopathy History of anesthesia problem "woken up during past procedures, because anesthesia didn't have my weight correct." History of cardioversion x3 06/2009, [facility]; no longer follows cardio since pacemaker removed Hypertension Long-term use of immunosuppressant medication s/p renal transplant Pancytopenia Paroxysmal atrial fibrillation dx, following dialysis in 2009 Thrombocytopenia hx Surgical History History of tonsillectomy and adenoidectomy Hx of colonoscopy Kidney replaced by transplant 08/2009, [facility];dr linda, zan S/P arteriovenous (AV) fistula creation lt arm restriction S/P cardiac pacemaker procedure placed 07/02/09 at [place]-[employer] pacer; pacemaker removed, leads remain intact S/P cholecystectomy Family History Mother Diabetes Father Prostate cancer Lung cancer Denies family history of Ovarian cancer Myocardial infarction Breast cancer Colorectal cancer Stroke Social History Smoking Status: Current every day smoker Tobacco Type: Pipe Age Started Using Tobacco: 9; packs per day: 2; Cigarettes Per Day: smokes daily; Second Hand Exposure: No; Hx Alcohol Use: Yes Alcohol type: beer Alcohol Intake Frequency: 2-3 x/Week Hx Substance Use: No Preferred Language: Serbian Communication Ability: Effective Visual Impairment: No Limitations Hearing Ability: Normal Management Consultant Required: No Beliefs That Will Affect Care: None marital status: Single Current Living Situation: Alone current occupational status: retired Feels Safe at Home: Yes Childhood Exposure to Second-Hand Smoke: No Dental Care, Regularly: Yes Physical Activity Frequency: 3-4 Times per Week Seatbelt Use: always Sunscreen Use: Yes Assistive Devices: None Physical Exam Constitutional: WD/WN, vitals as above Eyes: Pale, ill looking ENMT: external ear and nose normal, oropharynx normal Respiratory: normal respiratory effort, lungs clear to auscultation Cardiovascular: RRR, no murmur, no edema Gastrointestinal (Abdomen): normal bowel sounds, soft, nontender, no hepatosplenomegaly Skin: Multiple erythematous bullous looking lesions involving >60% BSA Lymphatic: no cervical or axillary lymphadenopathy
[2022-07-02 15:53] LABS: Albumin Level 3.3 gm/dl (3.4-5.0); Bilirubin,Total 0.9 mg/dl (0.2-1.0); Potassium 4.2 mmol/L (3.5-5.1)
[2022-07-02 15:59] LABS: Albumin Globulin Ratio 1.3 (0.9-2); BUN Creatinine Ratio 17.6 (10-20); Creatinine Clr Calc Pharmacy 98.2 ml/min; Est GFR (African American) 111.4 ml/min; Est GFR (Non-African American) 96.1 ml/min; Globulin 2.5 gm/dl (2.5-4.0); Total Protein 5.8 gm/dl (6.0-8.3)
[2022-07-02 16:03] LABS: Hematocrit (blood only) 22.1 % (42.0-52.0); Immature Granulocytes # (auto) 0.12 K/uL (0.01-0.20); Immature Granulocytes % (auto) 3.8 %; Lymphocytes # (auto) 0.27 K/uL (1.2-3.4); Lymphocytes % (auto) 8.5 %; Mean Corpuscular Hemoglobin 32.4 pg (25.0-34.0); Mean Corpuscular Hgb Conc 31.7 g/dL (32.0-36.0); Mean Corpuscular Volume 102.3 fL (80.0-100.0); Monocytes # (auto) 0.31 K/uL (0.11-0.59); Monocytes % (auto) 9.8 %; Neutrophils # (auto) 2.47 K/uL (1.40-6.50); Neutrophils % (auto) 77.9 %; Nucleated RBC # (auto) 0.03 K/uL (0-0.12); Nucleated RBC % (auto) 0.9 %; Platelet Count 100 K/uL (130-400); RDW Coefficient of Variation 27.9 % (11.5-14.5); RDW Standard Deviation 99.4 fL (36.4-46.3); Red Blood Count 2.16 M/uL (4.70-6.10); White Blood Count 3.17 K/ul (4.8-10.8)
[2022-07-02] MEDS ORDERED: SODIUM CHLORIDE 0.9% 250 ML IV PRN (16:13)
[2022-07-02 16:27] LABS: Polychromasia 1+
--- NOTE | 2022-07-02 18:21 | XRay Report ---
XR chest 1V portable CLINICAL HISTORY: PICC placement TECHNIQUE: Single frontal radiograph of the chest was obtained. Comparison: Comparison is made to chest radiograph 06/15/2022 FINDINGS: Interval placement of a right PICC with the tip in the lower SVC. Dual-lead pacemaker is seen. Cardio megaly is noted. The lungs are clear. No evidence of pleural effusion or pneumothorax. IMPRESSION: Interval placement of right PICC with a tip in the lower SVC, in satisfactory position. ACT 112: Negative or not required by law. Electronically signed by: Tristen Romeo M.D. 07/02/2022 6:19 PM
[2022-07-02] MEDS: TACROLIMUS 1 MG CAP PO SCH (20:13)
[2022-07-02] MEDS: METOPROLOL TARTRATE 25 MG TAB PO SCH (20:13)
[2022-07-02] MEDS: MYCOPHENOLATE MOFETIL 250 MG CAP PO SCH (20:13)
[2022-07-02] MEDS ORDERED: diphenhydrAMINE Capsule 25 MG CAP PO PRN (20:50)
[2022-07-02] MEDS ORDERED: predniSONE 20 MG TAB PO SCH (21:00)
[2022-07-03 06:39] LABS: Hematocrit (blood only) 22.6 % (42.0-52.0); Hemoglobin 7.3 g/dl (14.0-18.0); Mean Corpuscular Hemoglobin 31.9 pg (25.0-34.0); Mean Corpuscular Hgb Conc 32.3 g/dL (32.0-36.0); Mean Corpuscular Volume 98.7 fL (80.0-100.0); Mean Platelet Volume 9.6 fL (9.4-12.4); Nucleated RBC # (auto) 0.04 K/uL (0-0.12); Nucleated RBC % (auto) 1.4 %; Platelet Count 83 K/uL (130-400); RDW Coefficient of Variation 27.2 % (11.5-14.5); RDW Standard Deviation 92.9 fL (36.4-46.3); Red Blood Count 2.29 M/uL (4.70-6.10); White Blood Count 2.88 K/ul (4.8-10.8)
[2022-07-03 07:09] LABS: Eosinophils # (auto) 0.01 K/uL (0-0.50); Eosinophils % (auto) 0.3 %; Immature Granulocytes # (auto) 0.13 K/uL (0.01-0.20); Immature Granulocytes % (auto) 4.5 %; Lymphocytes % (auto) 13.9 %; Monocytes # (auto) 0.41 K/uL (0.11-0.59); Monocytes % (auto) 14.2 %; Neutrophils # (auto) 1.93 K/uL (1.40-6.50); Neutrophils % (auto) 67.1 %
[2022-07-03 07:29] LABS: Albumin Globulin Ratio 1.2 (0.9-2); Albumin Level 2.9 gm/dl (3.4-5.0); BUN Creatinine Ratio 17.5 (10-20); Bilirubin,Total 1.1 mg/dl (0.2-1.0); Calcium 8.9 mg/dl (8.5-10.1); Creatinine Clr Calc Pharmacy 90.8 ml/min; Est GFR (African American) 107.9 ml/min; Est GFR (Non-African American) 93.1 ml/min; Globulin 2.4 gm/dl (2.5-4.0); Magnesium 1.9 mg/dl (1.7-2.4); Phosphorus 4.3 mg/dl (2.5-4.9); Potassium 3.9 mmol/L (3.5-5.1); Total Protein 5.3 gm/dl (6.0-8.3)
[2022-07-03] MEDS ORDERED: SODIUM CHLORIDE 0.9% 250 ML IV PRN (07:56)
[2022-07-03] MEDS: predniSONE 50 MG TAB PO SCH (08:10)
[2022-07-03] MEDS: MYCOPHENOLATE MOFETIL 250 MG CAP PO SCH ×2 (08:10→20:55)
[2022-07-03] MEDS: METOPROLOL TARTRATE 25 MG TAB PO SCH ×2 (08:10→20:55)
[2022-07-03] MEDS: TACROLIMUS 1 MG CAP PO SCH ×2 (08:10→20:55)
[2022-07-03] MEDS ORDERED: PALONOSETRON 0.25 MG in SYRINGE 0 ML IV SCH (09:00)
[2022-07-03] MEDS ORDERED: FOSAPREPITANT DIMEGLUMINE 150 MG in SODIUM CHLORIDE 0.9% 145 ML IV ONE (09:00)
[2022-07-03] MEDS ORDERED: allopurinoL 300 MG TAB PO ONE (09:15)
[2022-07-03] MEDS ORDERED: DOXORUBICIN HCL IV ONE (09:30)
[2022-07-03] MEDS ORDERED: CYCLOPHOSPHAMIDE IV SCH (09:40)
[2022-07-03] MEDS ORDERED: SODIUM CHLORIDE 0.9% IV SCH (09:40)
[2022-07-03 11:14] LABS: Uric Acid 7.8 mg/dl (2.6-7.2)
[2022-07-03] MEDS: SODIUM CHLORIDE 0.9% 1000ML 1,000 ML IV SCH ×2 (12:30→22:35)
--- NOTE | 2022-07-03 14:40 | Hospitalist Progress Note ---
Date of Service July 03, 2022 Assessment & Plan (1) T-cell lymphoma: Plan: T-cell lymphoma acute and serious risk this is in the setting of solid organ transplantation CD30 positive on biopsy, final results pending PICC placement and initiation of chemotherapy given progression of illness Moderate to high risk for tumor lysis IV fluids started initiating allopurinol 300 daily on 07/03/2022 Chronic kidney disease, status post renal transplant renal function is at baseline, stable Pancytopenia with likely anemia of chronic disease patient transfused 2 units packed red blood cells Anemia acute on chronic significant risk In the setting of T-cell lymphoma Transfuse 2 units packed red blood cells Hypertension chronic and stable Continue metoprolol 25 mg p.o. twice daily History of renal transplant chronic and stable renal function is stable Transplanted 08/2009, [address] 06/04 focal glomerular Sclerosis Follows with: Dr. Burton, [facility]. Office phone [phone]. Goal tacrolimus levels 4-6ng/mL Last creatinine 0.93, GFR estimated 85 Tacrolimus 1 mg p.o. twice daily continued, mycophenolate 500 mg twice daily continued. Typically takes daily prednisone also transplant team is pending final pathology results before adjusting. Tacrolimus levels pending Cardiomyopathy chronic stable resolved History, repeat echo normal Echo 07/01/2022: LV SF normal, no regional wall motion abnormalities, EF 60-65%, no change compared to 06/2022 DVT prophylaxis: SCDs, defer pharmacal prophylaxis in the setting of symptomatic anemia and thrombocytopenia Diet: Regular Disposition: PCU CODE STATUS: Full code (2) Anemia: (3) Rash: (4) Pancytopenia: (5) Hypertension: (6) Kidney replaced by transplant: (7) Long-term use of immunosuppressant medication: Admission and Anticipated Discharge Date Admission Date: July 02, 2022 Subjective Very pleasant man slightly anxious no immediate focal concerns initiating chemotherapy first round on 07/03/2022 getting impatient chemo under the directioin of Dr Linda The pt is agreeable to stay overnight but wants to be home as soon as able, did receive 2 PRBC transfusion while here Physical Exam Physical Exam: Awake alert and present Cardiac exam is regular lung exam is clear he is a nodular rash across his anterior chest No defined pedal splenomegaly Trace lower extremity edema bilaterally Results & Data Results & Data ([facility]) Vital Signs (Past 12 Hours) Vital Signs Temp Pulse Pulse Resp BP BP Pulse Ox 07/03/22 11:15 98.4 F 75 18 138/75 95 07/03/22 11:12 98.8 F 76 20 122/66 96 07/03/22 10:15 82 18 136/70 96 07/03/22 09:45 97.9 F 83 20 134/72 97 07/03/22 09:30 98.1 F 89 18 119/66 94 07/03/22 08:00 85 07/03/22 09:18 98.1 F 89 18 124/66 07/03/22 09:10 91 H 18 139/70 96 07/03/22 07:39 98.4 F 84 16 121/66 97 07/03/22 03:02 98.8 F 79 16 122/68 96 O2 Del Method 07/03/22 11:15 07/03/22 11:12 07/03/22 10:15 07/03/22 09:45 07/03/22 09:30 07/03/22 08:00 07/03/22 09:18 07/03/22 09:10 07/03/22 07:39 Room Air 07/03/22 03:02 Room Air Laboratory Results Reviewed CBC Reviewed chemistry Reviewed uric acid Reviewed nutritional parameters mildly low PG Care Time/CCT Total # of Minutes Spent Total Time Spent with Patient: Total time spent is greater than 50% in coordination of care (as documented) at patient's floor/unit and/or counseling patient: Coding Level of Care Code 90273 SUB INP/OBS CARE 3/50MIN Diagnoses T-cell lymphoma C85.90 Anemia D64.9 Rash R21 Pancytopenia D61.818 Hypertension I10 Kidney replaced by transplant Z94.0 Long-term use of immunosuppressant medication Z79.899
[2022-07-03] MEDS: diphenhydrAMINE Capsule 25 MG CAP PO PRN (20:55)
[2022-07-04 06:11] LABS: Hematocrit (blood only) 25.6 % (42.0-52.0); Hemoglobin 8.4 g/dl (14.0-18.0); Immature Granulocytes # (auto) 0.09 K/uL (0.01-0.20); Immature Granulocytes % (auto) 1.9 %; Lymphocytes # (auto) 0.29 K/uL (1.2-3.4); Lymphocytes % (auto) 6.1 %; Mean Corpuscular Hemoglobin 32.1 pg (25.0-34.0); Mean Corpuscular Hgb Conc 32.8 g/dL (32.0-36.0); Mean Corpuscular Volume 97.7 fL (80.0-100.0); Mean Platelet Volume 10.5 fL (9.4-12.4); Monocytes # (auto) 0.42 K/uL (0.11-0.59); Monocytes % (auto) 8.8 %; Neutrophils # (auto) 3.98 K/uL (1.40-6.50); Neutrophils % (auto) 83.2 %; Platelet Count 78 K/uL (130-400); RDW Coefficient of Variation 25.9 % (11.5-14.5); RDW Standard Deviation 85.3 fL (36.4-46.3); Red Blood Count 2.62 M/uL (4.70-6.10); White Blood Count 4.78 K/ul (4.8-10.8)
[2022-07-04 06:58] LABS: Anisocytosis Present; Polychromasia 1+
[2022-07-04] MEDS: METOPROLOL TARTRATE 25 MG TAB PO SCH ×2 (08:11→20:56)
[2022-07-04] MEDS: allopurinoL 300 MG TAB PO SCH (08:11)
[2022-07-04] MEDS: FILGRASTIM 480 MCG/1.6 ML VIAL SC SCH (08:11)
[2022-07-04] MEDS: MYCOPHENOLATE MOFETIL 250 MG CAP PO SCH ×2 (08:11→20:56)
[2022-07-04] MEDS: predniSONE 50 MG TAB PO SCH (08:11)
[2022-07-04] MEDS: TACROLIMUS 1 MG CAP PO SCH ×2 (08:11→20:56)
[2022-07-04 08:45] LABS: BUN Creatinine Ratio 41.5 (10-20); Calcium 8.5 mg/dl (8.5-10.1); Creatinine Clr Calc Pharmacy 111.8 ml/min; Est GFR (African American) 117.5 ml/min; Est GFR (Non-African American) 101.4 ml/min; Magnesium 2.2 mg/dl (1.7-2.4); Potassium 4.4 mmol/L (3.5-5.1)
--- NOTE | 2022-07-04 09:31 | Hematology/Oncology Prog Note ---
Date of Service July 04, 2022 Assessment & Plan (1) T-cell lymphoma: (2) Thrombocytopenia: (3) Anemia: (4) Kidney replaced by transplant: (5) Long-term use of immunosuppressant medication: Plan Pleasant gentleman with history of renal transplant for which he is on chronic immunosuppression who was recently diagnosed with CD30 positive lymphoma. He is s/p cycle 1 of CHP which he received while inpatient on 07/03/2022. -Doing well from an oncology standpoint. Labs show improving uric acid of 7.2 and no evidence to suggest TLS with normal potassium, phosphorus and calcium. Renal function stable. Continue allopurinol 300 mg p.o. daily. Continue IV hydration while inpatient. -He will receive G-CSF with filgrastim 480 mcg daily x2 days prior to discharge -PICC line can be discontinued. We will arrange for outpatient PICC line/Mediport placement prior to cycle 2 of treatment -Transfuse for hemoglobin less than 7.5 and platelet count less than 15,000 -Also continue with prednisone 100 mg p.o. daily till 07/07/2022 -He will be scheduled to receive brentuximab for doting early next week outpatient at [facility] -Plan to obtain outpatient labs on 07/08/2022. -Outpatient PET/CT as scheduled on 07/08/2022 Anticipate that he would be able to be discharged tomorrow if labs continue to show improvement in uric acid and no renal impairment is noted Admission and Anticipated Discharge Date Admission Date: July 02, 2022 Subjective Patient received cycle 1 of CHP yesterday which was well-tolerated. Complains of frequent PICC line occlusion overnight and is concerned about PICC line care upon discharge from hospital. Denies nausea, vomiting, diarrhea, fever, chills or any other issues Review of Systems Review of Systems: All systems reviewed & are unremarkable except as noted in Subjective Results & Data ([facility]) Vital Signs (Past 12 Hours) Vital Signs Temp Pulse Pulse Pulse Resp BP Pulse Ox 07/04/22 07:49 36.9 C 79 20 124/74 94 07/04/22 04:02 36.6 C 75 20 134/74 96 07/03/22 23:53 36.3 C L 83 18 125/73 93 07/03/22 23:38 70 O2 Del Method 07/04/22 07:49 Room Air 07/04/22 04:02 Room Air 07/03/22 23:53 Room Air 07/03/22 23:38
[2022-07-04 10:20] LABS: Phosphorus 4.6 mg/dl (2.5-4.9); Uric Acid 7.2 mg/dl (2.6-7.2)
[2022-07-04 11:07] LABS: HBSAG NON-REACTIVE (NON-REACTIVE); Hepatitis A Antibody IgM NON-REACTIVE (NON-REACTIVE); Hepatitis B Core Antibody IgM NON-REACTIVE (NON-REACTIVE)
--- NOTE | 2022-07-04 12:42 | Hospitalist Progress Note ---
Date of Service July 04, 2022 Assessment & Plan (1) T-cell lymphoma: Plan: T-cell lymphoma acute and serious risk this is in the setting of solid organ transplantation CD30 positive on biopsy, final results pending PICC placement and initiation of chemotherapy given progression of illness Moderate to high risk for tumor lysis IV fluids started initiating allopurinol 300 daily on 07/03/2022 Chronic kidney disease, status post renal transplant renal function is at baseline, stable Pancytopenia with likely anemia of chronic disease patient transfused 2 units packed red blood cells Anemia acute on chronic significant risk In the setting of T-cell lymphoma Transfuse 2 units packed red blood cells Hypertension chronic and stable Continue metoprolol 25 mg p.o. twice daily History of renal transplant chronic and stable renal function is stable Transplanted 08/2009, [address] 06/04 focal glomerular Sclerosis Follows with: Dr. Burton, [facility]. Office phone [phone]. Goal tacrolimus levels 4-6ng/mL Last creatinine 0.93, GFR estimated 85 Tacrolimus 1 mg p.o. twice daily continued, mycophenolate 500 mg twice daily continued. Typically takes daily prednisone also transplant team is pending final pathology results before adjusting. Tacrolimus levels pending Cardiomyopathy chronic stable resolved History, repeat echo normal Echo 07/01/2022: LV SF normal, no regional wall motion abnormalities, EF 60-65%, no change compared to 06/2022 DVT prophylaxis: SCDs, defer pharmacal prophylaxis in the setting of symptomatic anemia and thrombocytopenia Diet: Regular Disposition: PCU CODE STATUS: Full code (2) Anemia: (3) Rash: (4) Pancytopenia: (5) Hypertension: (6) Kidney replaced by transplant: (7) Long-term use of immunosuppressant medication: Admission and Anticipated Discharge Date Admission Date: July 02, 2022 Subjective Very pleasant man slightly anxious no immediate focal concerns Tolerated chemotherapy first round on 07/03/2022 getting impatient chemo under the directioin of Dr Linda Patient has intolerance of PICC line being occluded frequently this was discontinued discontinued did receive 2 PRBC transfusion while here Physical Exam Physical Exam: Awake alert and present Cardiac exam is regular lung exam is clear he is a nodular rash across his anterior chest No defined pedal splenomegaly Trace lower extremity edema bilaterally Results & Data Results & Data ([facility]) Vital Signs (Past 12 Hours) Vital Signs Temp Pulse Pulse Pulse Resp BP Pulse Ox 07/04/22 11:33 98.6 F 70 18 134/75 97 07/04/22 08:00 79 07/04/22 07:49 98.4 F 79 20 124/74 94 07/04/22 04:02 97.9 F 75 20 134/74 96 O2 Del Method 07/04/22 11:33 Room Air 07/04/22 08:00 07/04/22 07:49 Room Air 07/04/22 04:02 Room Air Laboratory Results Reviewed CBC Reviewed PRP PG Care Time/CCT Total # of Minutes Spent Total Time Spent with Patient: Total time spent is greater than 50% in coordination of care (as documented) at patient's floor/unit and/or counseling patient: Coding Level of Care Code 11932 SUB INP/OBS CARE 2/35MIN Diagnoses T-cell lymphoma C85.90 Anemia D64.9 Rash R21 Pancytopenia D61.818 Hypertension I10 Kidney replaced by transplant Z94.0 Long-term use of immunosuppressant medication Z79.899
[2022-07-04] MEDS: SODIUM CHLORIDE 0.9% 1000ML 1,000 ML IV SCH ×2 (13:16→19:32)
[2022-07-04] MEDS: diphenhydrAMINE Capsule 25 MG CAP PO PRN (20:56)
[2022-07-04] MEDS ORDERED: NYSTATIN POWDER 15GM BTL EXT PRN (21:12)
[2022-07-05] MEDS: SODIUM CHLORIDE 0.9% 1000ML 1,000 ML IV SCH (05:27)
[2022-07-05] MEDS: TACROLIMUS 1 MG CAP PO SCH (08:48)
[2022-07-05] MEDS: METOPROLOL TARTRATE 25 MG TAB PO SCH (08:48)
[2022-07-05] MEDS: MYCOPHENOLATE MOFETIL 250 MG CAP PO SCH (08:48)
[2022-07-05] MEDS: allopurinoL 300 MG TAB PO SCH (08:48)
[2022-07-05] MEDS: predniSONE 50 MG TAB PO SCH (08:48)
[2022-07-05] MEDS: FILGRASTIM 480 MCG/1.6 ML VIAL SC SCH (08:54)
[2022-07-05 09:18] LABS: Hematocrit (blood only) 28.8 % (42.0-52.0); Hemoglobin 9.3 g/dl (14.0-18.0); Mean Corpuscular Hemoglobin 31.7 pg (25.0-34.0); Mean Corpuscular Hgb Conc 32.3 g/dL (32.0-36.0); Mean Corpuscular Volume 98.3 fL (80.0-100.0); Mean Platelet Volume 10.1 fL (9.4-12.4); Platelet Count 91 K/uL (130-400); RDW Coefficient of Variation 26.5 % (11.5-14.5); RDW Standard Deviation 89.5 fL (36.4-46.3); Red Blood Count 2.93 M/uL (4.70-6.10); White Blood Count 15.79 K/ul (4.8-10.8)
[2022-07-05 09:35] LABS: BUN Creatinine Ratio 31.3 (10-20); Calcium 8.7 mg/dl (8.5-10.1); Creatinine Clr Calc Pharmacy 113.5 ml/min; Est GFR (African American) 118.3 ml/min; Magnesium 2.2 mg/dl (1.7-2.4); Potassium 3.8 mmol/L (3.5-5.1)
[2022-07-05 09:37] LABS: Phosphorus 3.8 mg/dl (2.5-4.9); Uric Acid 6.7 mg/dl (2.6-7.2)
[2022-07-05 10:23] LABS: Anisocytosis Present; Basophils # (auto) 0.02 K/uL (0-0.2); Basophils % (auto) 0.1 %; Echinocytes 1+; Immature Granulocytes % (auto) 4.4 %; Lymphocytes # (auto) 0.52 K/uL (1.2-3.4); Lymphocytes % (auto) 3.3 %; Monocytes % (auto) 1.3 %; Neutrophils # (auto) 14.35 K/uL (1.40-6.50); Neutrophils % (auto) 90.9 %; Polychromasia 1+
--- NOTE | 2022-07-05 13:39 | Discharge Summary ---
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 Due to progression of symptoms patient was not felt to be able to wait for outpatient treatment of his malignancy, and is moderate to high risk for TLS and has been referred for hospital admission for initiation of chemotherapy and monitoring Jose is seen at the bedside following direct admission to the hospital. Initial labs with hemoglobin 7.0, WBC 3.17, PLT 100, lymphocytes 0.27, neutrophil 2.47. Type and cross ordered Patient reports that he initially developed a rash in the end of May/meaning June which rapidly spread from his neck, down his trunk, to his back, and proximal lower legs. Was admitted in the hospital for symptomatic anemia requiring transfusion. Subsequent evaluation and biopsy showed CD30 positive lymphoproliferative disorder. Given patient's rapidly progressive symptoms has been recommended for direct admission and initiation of chemotherapy. Patient reports that he has had weight loss, some night sweats, fatigue, and chronic shortness of breath without difficulty breathing. At time of presentation patient reports that he has no chest pain, chest pressure, lightheadedness, dizziness, cough, , difficulty breathing, abdominal pain, nausea, vomiting, or diarrhea. He is hungry and has not eaten today. He is here to get his treatment started, and has several questions regarding the duration/number cycles of treatment that he will require and will discuss these with oncology. Is aware that a Mediport was not able to be placed due to his skin involvement, risk/benefits of PICC placement was reviewed with patient at bedside and consent was signed. He does not have any other questions at time of admission. He does continue to take CellCept and tacrolimus. Tac level ordered. Did take morning medicines. 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 Discharge Exam Patient worked awake alert appropriate still has rash upon his body this appears to be minorly receding On exam heart exam ss regular lungs are clear Skin is covered with a macular papular rash which has a nodular component Discharge Data Allergies Allergy/AdvReac Type Severity Reaction Status Date / Time No Known Allergies Allergy Verified 07/02/22 16:30 Consultations 07/02/22 14:01 Consult Hematology Routine Hospital Course (1) T-cell lymphoma: T-cell lymphoma acute and serious risk this is in the setting of solid organ transplantation CD30 positive on biopsy, final results pending PICC placement and initiation of chemotherapy PICC was removed given the patient's discomfort Is imperative alternative IV access is secured prior to her next chemotherapeutic treatment Continues on allopurinol 300 daily on discharge Chronic kidney disease, status post renal transplant renal function is at baseline, stable Pancytopenia with likely anemia of chronic disease patient transfused 2 units packed red blood cells Anemia acute on chronic significant risk In the setting of T-cell lymphoma Transfused 2 units packed red blood cells Hypertension chronic and stable Continue metoprolol 25 mg p.o. twice daily History of renal transplant chronic and stable renal function is stable Transplanted 08/2009, [facility] [address] 06/04 focal glomerular Sclerosis Follows with: Dr. Burton, [facility]. Office phone [phone]. Goal tacrolimus levels 4-6ng/mL Last creatinine 0.93, GFR estimated 85 Tacrolimus 1 mg p.o. twice daily continued, mycophenolate 500 mg twice daily continued. Typically takes daily prednisone also transplant team is pending final pathology results before adjusting. Tacrolimus levels pending Cardiomyopathy chronic stable resolved History, repeat echo normal Echo 07/01/2022: LV SF normal, no regional wall motion abnormalities, EF 60-65%, no change compared to 06/2022 CODE STATUS: Full code (2) Anemia: (3) Rash: (4) Pancytopenia: (5) Hypertension: (6) Kidney replaced by transplant: (7) Long-term use of immunosuppressant medication: Total Time Total Time Spent Total Time Spent (In Minutes): It required greater than 30 minutes to prepare this patient for discharge Discharge Plan Discharge Items Patient Disposition: Home - Self-Care Reason For Visit: LYMPHOMA Discharge Diagnosis: cutaneous lymphoma, first round of chemotherapy Activity: Per Instructions section Activity Comment: rest and recover Non-emergency contact: Primary Care Provider and Specialist Call non-emergency contact if: your symptoms worsen Follow-up/Referrals: ProMor MD [Primary Care Provider] - Diet: Regular Addtl Attending Provider Instructions: Your healthcare provider prescribed a type of medicine therapy for you called chemotherapy. Healthcare providers prescribe chemotherapy for many different types of illnesses, including cancer. There are many types of chemotherapy. This sheet provides general guidelines on how you can take care ofyourself after your chemotherapy. Mouth care Dont be discouraged if you get mouth sores, even if you are following all your healthcare providers instructions. Many people get mouth sores as a side effect of chemotherapy. Heres what you can do to prevent mouth sores: * Keep your mouth clean. Paulina your teeth with a soft-bristle toothbrush after every meal. * Ask if you should use a toothpaste with fluoride, or a mixture of 1 teaspoon of salt in 8-ounces of water to brush your teeth. * Use an oral swab or special soft toothbrush if your gums bleed during regular brushing. * Don't use dental floss if it causes your gums to bleed. * Use any mouthwashes given to you as directed. * If you cant tolerate regular methods, use salt and baking soda to clean your mouth. [id number] salt [id number] of baking soda in 1 quart of warm water. Swish and spit. * If you wear dentures, you may be told to wear them only when you eat, ask your healthcare provider. Clean dentures twice a day and soak in antimicrobial solution when you aren't wearing them. Rinse your mouth after each meal. * Watch your mouth and tonguefor white patches. Thismay kennedy sign of a type of yeast infection (thrush), a common side effect of chemotherapy. Be sure to tell your healthcare provider about these patches. Medicine can be prescribed to treat it. * Other home care Here's what else you can do: * Try to exercise. Exercise keeps you strong and keeps your heart and lungs active. Walking and yoga are good types of exercise. * Keep clean. During chemotherapy, your body cant fight infection very well. Take short baths or showers. * Wash your hands before you eat and after going to the bathroom. * Use moisturizing soap. Chemotherapy can make your skin dry. * Apply moisturizing lotion several times a day to help relieve dry skin. * Dont take very hot or very cold showers or baths. * Dont be surprised if your chemotherapy causes slight rosales to your skinusually on the hands and feet. Some medicines used in high doses cause this to happen. Ask for a special cream to help relieve the burn and protect your skin. * Avoid people who are sick with illnesses and diseases you could catch, such as colds, flu, measles, or chicken pox as well as people who have recently had vaccinations for these illnesses. * Let your healthcare provider know if your throat is sore. You may have an infection that needs treatment. * Remember, many patients feel sick and lose their appetites during treatment. Eat small meals several times a day to keep your strength up: * Choose bland foods with little taste or smell if you are reacting strongly to food. * Be sure to cook all food thoroughly. This kills bacteria and helps you avoid infection. * Eat foods that are soft. Soft foods are less likely to cause stomach irritation. * Try to eat a variety of foods for a well-balanced diet. Drink plenty of fluids and eat foods with fiber to avoid constipation. When to call your healthcare provider Call your healthcare provider right away if you have any of the following: * Unexplained bleeding * Trouble concentrating * Ongoing fatigue * Shortness of breath, wheezing, trouble breathing, or bad cough * Rapid, irregular heartbeat, or chest pain * Dizziness, lightheadedness * Constant feeling of being cold * Hives oracut or rash that swells, turns red, feels hot or painful, or begins to ooze * Burning when you urinate * [id number] (38C) fifi steward directed by your healthcare provider Pending Studies at Discharge: No Stand-Alone Forms: My [facility], Smoking Cessation Medications and DC Order Prescriptions: New allopurinol 300 mg Tablet 300 mg PO DAILY Qty: 30 0RF Continued metoprolol tartrate 50 mg tablet 25 mg PO BID Qty: 90 1RF tacrolimus 1 mg capsule 1 mg PO BID mycophenolate mofetil 250 mg capsule 500 mg PO BID Qty: 360 magnesium oxide 400 mg (241.3 mg magnesium) tablet 400 mg PO HS multivitamin tablet 1 tab PO QAM vitamin B complex [B Complex 1] tablet 1 tab PO QAM cholecalciferol (vitamin D3) 25 mcg (1,000 unit) capsule 25 mcg PO QAM prednisone 20 mg Tablet 20 mg PO TID Vitamin B Stress Complex 1 tab PO HS diphenhydramine HCl [Sleep Aid (diphenhydramine)] 50 mg capsule 25 - 50 mg PO HS Qty: 1 0RF Rx Instructions: for sleep; [id number] benadryl. Discharge Orders: Discharge Order (Routine); Ordered 07/05/22 Ordered By: Mehrdad Kaminski Admission Data Admit Date/Time: 07/02/22 14:01 Attending Provider: Mehrdad Kaminski Admit Provider: Dwight Rivera Primary Care Provider: Mor Palacio Other Providers: Nikki Linda Other Interventions: Discharge Summary Assessment (RN) Last Done: 07/05/22 10:23 Coding Level of Care Code 36778 INP/OBS DISCH >30 MIN Diagnoses T-cell lymphoma C85.90 Anemia D64.9 Rash R21 Pancytopenia D61.818 Hypertension I10 Kidney replaced by transplant Z94.0 Long-term use of immunosuppressant medication Z79.899
== END 2022-07-05 11:10 | disposition home or self-care (01) | DRG 847 ==
LOC: 4W 14:08 → SUATTDRO 14:08